=== PATIENT | female | born 1955 | race Caucasian/White ===

== ENCOUNTER 2021-01-13 13:12 | Outpatient (REF) | payer MEDICARE, SELFPAY ==
--- NOTE | ~2021-01-13 | MM_ITS ---
EXAMINATION: MM SCREENING DIGITAL BREAST TOMOSYNTHESIS, BILATERAL CLINICAL INFORMATION: Screening. Asymptomatic. Right breast cancer history, 2003. COMPARISON: Mammography: 01/11/2020, 10/21/2018, 10/19/2017 TECHNIQUE: Digital breast tomosynthesis is performed in both the craniocaudal and mediolateral oblique views along with computer-aided detection (CAD). Synthesized 2D images are generated from the tomosynthesis. Additional exaggerated right CC view is provided. FINDINGS: There are scattered areas of fibroglandular density (ACR BI-RADS breast composition Category b). There is minor stable scarring anterior upper outer right breast similar to prior studies. Neither breast shows developing density or interval mass or architectural abnormality. No abnormal calcifications. The axilla are unremarkable. MM/MM tomosynthesis screening BI IMPRESSION: No mammographic evidence of malignancy. Post therapy changes right breast. ASSESSMENT: BI-RADS 2: Benign RECOMMENDATION: Routine annual mammography screening. This patient's information was entered into a reminder system with a target due date for their next mammogram.
== END 2021-01-13 13:13 | disposition home or self-care (01) ==
LOC: HO.MAMMO 13:12
PROVIDERS: PCP Internal Medicine; Visit Provider Internal Medicine
DX: Z12.31 Encounter for screening mammogram for malignant neoplasm of breast (principal)
CPT/HCPCS: 77063; 77067

== ENCOUNTER 2022-01-19 13:14 | Outpatient (REF) | payer MEDICARE, SELFPAY ==
--- NOTE | ~2022-01-19 | MM_ITS ---
EXAMINATION: MM SCREENING DIGITAL BREAST TOMOSYNTHESIS, BILATERAL CLINICAL INFORMATION: Screening. Asymptomatic. Right breast cancer status post remote lumpectomy, 2002. COMPARISON: Mammography: 01/13/2021, 01/11/2020, 10/21/2018, 10/19/2017 TECHNIQUE: Digital breast tomosynthesis is performed in both the craniocaudal and mediolateral oblique views along with computer-aided detection (CAD). Synthesized 2D images are generated from the tomosynthesis. FINDINGS: There are scattered areas of fibroglandular density (ACR BI-RADS breast composition Category b). There are no significant masses, abnormal calcifications, or other abnormalities. There is no developing density or architectural abnormality. Minor scarring on right is stable. Left CC synthesized image shows punctate digital processing pseudo calcification artifact retroareolar area without correlate on tomography or MLO view. MM/MM tomosynthesis screening BI IMPRESSION: No mammographic evidence of malignancy. ASSESSMENT: BI-RADS 2: Benign RECOMMENDATION: Routine annual mammography screening. This patient's information was entered into a reminder system with a target due date for their next mammogram.
== END 2022-01-19 13:15 | disposition home or self-care (01) ==
LOC: HO.MAMMO 13:14
PROVIDERS: Visit Provider Internal Medicine
DX: Z12.31 Encounter for screening mammogram for malignant neoplasm of breast (principal)
CPT/HCPCS: 77063; 77067

== ENCOUNTER 2023-01-05 15:49 | Outpatient (AMB) | payer MEDICARE, SELFPAY ==
[2023-01-05 15:57] VITALS: BP 140/77; PULSE 70; BMI 18.2
--- NOTE | 2023-01-05 15:57 | MHC.OFFVIS ---
Intake Vital Signs 01/05/23 15:57 Height 5 ft 5 in Weight 109 lb 2.061 oz BMI 18.2 BP 140/77 H Pulse 70 Intake Visit Reasons: Hypothyroidism Intake Note: Patient presents today for hypothyroidism. Service Coordinator Elderly Facility Required: No Accompanied by: Self / Same As Patient Allergies erythromycin base [Erythromycin Base] Allergy (Intermediate, Verified 01/05/23 16:00) RASH/HIVES Medication List - Last Reconciled 01/05/23 by Jose Luque MD betamethasone dipropionate 0.05% 1 appl topical BID PRN calcium carb-vitamin D3-vit K2 600 mg-1,000 unit-90 mcg tabs PO cyanocobalamin (vitamin B-12) 1,000 mcg PO DAILY diazepam 5 mg PO BID PRN 30 days folic acid 0.4 mg PO DAILY levothyroxine 88 mcg orally once a day and 2 on wednesday; 90 days oxycodone 5 mg PO DAILY PRN HPI HPI Comments History of Present Illness Details 67 YO F with who is seen in consultation at the request of his PCP for Hyothyroidism. Patient was previously seen for Graves disease which evolved into hypothyroidism. She is currently on 88 mcg levothyroxine and 2 tablets on Wednesday .Denies sx of hypothyroidism or hyperthyroidism Eyes are not bothering her. [facility] Medical History (Updated 10/30/22 @ 12:11 by David Padilla MD) Adult general medical exam Anxiety History of breast cancer Hypercholesterolemia Hypothyroid Migraine Screening for diabetes mellitus Surgical History H/O breast biopsy History of colonoscopy History of tubal ligation Hx of myomectomy Family History Father Bladder cancer Mother Hypertension Brother Acute CVA (cerebrovascular accident) Hx of CABG Sister Ovarian cancer Brain aneurysm Social History Housing: House Alcohol intake: current Alcohol intake frequency: a few times a week Alcohol type: wine Patient Tobacco Use Status: Former Tobacco user Years Smoked: 23 years old e-Cigarette/Vaping Use: Never Used Second Hand Smoke Exposure: No service: No Current occupational status: retired Cognitive needs: No Hearing needs: No Vision needs: Yes Physical Exam Vital Signs: BMI result Body Mass Index 18.2 HEENT reveals absence of lid lag , stare or proptosis or eyebrow loss. Thyroid gland measure gms . No nodules or tenderness palpated. There is no cervical adenopathy palpated. Lungs CTA. Heart S1, S2 Reg R/R -M/R/G. Abdominal exam benign. Skin exam reveals absence of dryness or thyroid dermopathy or vitiligo. Nail exam reveals absence of thyroid acropachy or oncholysis. Neurologic exam reveals 2+ reflexes . Muscle Strength is 5/5 proximally. There are no tremors in upper extremities. Assessment & Plan Assessment & Plan (1) Hypothyroid: Comment: History of hyperthyroidism Dr. Rock changed to under active Code(s): E03.9 - Hypothyroidism, unspecified Qualifiers: Hypothyroidism type: acquired Qualified Code(s): E03.9 - Hypothyroidism, unspecified Plan: This 67-year-old white female with a history of autoimmune thyroid disease and hypothyroidism currently being treated with 88 mcg levothyroxine. She appears to be clinically and biochemically euthyroid. Plan is to continue the current therapy. At this point, patient returned to the care of her primary care provider and return back to endocrinology as needed Coding Level of Care Code Est Pt Level 3 (16410) Diagnoses Hypothyroid E03.9 Hypothyroidism type: acquired
== END 2023-01-05 16:28 | disposition home or self-care (01) ==
PROVIDERS: PCP Internal Medicine; Visit Provider Internal Medicine Endocrinology, Diabetes & Metabolism
DX: E03.9 Hypothyroidism, unspecified (principal)
CPT/HCPCS: 99213

== ENCOUNTER → 2023-01-05 15:49 | Outpatient (BNVA) | payer MEDICARE, SELFPAY | PROVIDERS: PCP Internal Medicine; Visit Provider Internal Medicine Endocrinology, Diabetes & Metabolism | DX: E03.9 Hypothyroidism, unspecified (principal) | CPT/HCPCS: 99212 ==

== ENCOUNTER 2023-01-22 12:42 | Outpatient (REF) | payer MEDICARE, SELFPAY ==
--- NOTE | ~2023-01-22 | MM_ITS ---
EXAMINATION: MM SCREENING DIGITAL BREAST TOMOSYNTHESIS, BILATERAL CLINICAL INFORMATION: Screening. Asymptomatic. The patient had lumpectomy for right breast cancer in 2002. COMPARISON: Mammography: This study is compared with prior exams dating back to 2017. TECHNIQUE: Digital breast tomosynthesis is performed in both the craniocaudal and mediolateral oblique views along with computer-aided detection (CAD). Synthesized 2D images are generated from the tomosynthesis. FINDINGS: There are scattered areas of fibroglandular density (ACR BI-RADS breast composition Category b). There are no significant masses, abnormal calcifications, or other abnormalities. There are mild postsurgical changes in the upper outer quadrant of the right breast. MM/MM tomosynthesis screening BI IMPRESSION: No mammographic evidence of malignancy. ASSESSMENT: BI-RADS BI-RADS 2 - Benign Findings RECOMMENDATION: Routine annual mammography screening. 1 year F/U This examination should not preclude the clinical evaluation of a suspicious palpable abnormality. This patient's information was entered into a reminder system with a target due date for their next mammogram.
== END 2023-01-22 12:43 | disposition home or self-care (01) ==
LOC: HO.MAMMO 12:42
PROVIDERS: PCP Internal Medicine; Visit Provider Internal Medicine
DX: Z12.31 Encounter for screening mammogram for malignant neoplasm of breast (principal)
CPT/HCPCS: 77063; 77067

== ENCOUNTER → 2023-01-22 13:00 | Outpatient (BNV) | payer MEDICARE, SELFPAY | PROVIDERS: PCP Internal Medicine; Visit Provider Radiology Diagnostic Radiology | DX: Z12.31 Encounter for screening mammogram for malignant neoplasm of breast (principal) | CPT/HCPCS: 77063; 77067 ==

== ENCOUNTER 2023-01-27 13:48 | Outpatient (AMB) | payer MEDICARE, SELFPAY ==
--- NOTE | 2023-01-27 13:51 | A.OFFVIS_ITS ---
Intake Vital Signs 01/27/23 13:52 Height 5 ft 5 in Weight 108 lb 0.8 oz BMI 18.0 BP 130/70 Blood Pressure Location Lt brachial Position Sitting Pulse 70 Pulse Source Pulse Oximeter Temp Source Skin Pulse Oximetry (%) 99 Oxygen Delivery Method Room Air Intake Visit Reasons: SAWV Intake Note: Patient is here for an Annual Wellness Visit. Allergies erythromycin base [Erythromycin Base] Allergy (Intermediate, Verified 01/27/23 14:06) RASH/HIVES Medication List - Last Reconciled 01/27/23 by REESE Morgan betamethasone dipropionate 0.05% 1 appl topical BID PRN calcium carb-vitamin D3-vit K2 600 mg-1,000 unit-90 mcg tabs PO cyanocobalamin (vitamin B-12) 1,000 mcg PO DAILY diazepam 5 mg PO BID PRN 30 days folic acid 0.4 mg PO DAILY levothyroxine 88 mcg orally once a day and 2 on wednesday; 90 days oxycodone 5 mg PO DAILY PRN HPI SAWV HPI Details Patient is a 67-year-old female who presents today for subsequent wellness visit. Patient of Dr. Padilla. Today we discussed patient's need for bone density screening, patient has declined. Patient did have mammogram 01/2023 with [facility], results pending. Patient has an upcoming appointment with gynecology for annual exam 03/2023. Up-to-date with immunizations. [place] of care was reviewed with the patient and she was provided with a screening schedule. Patient has declined a healthcare proxy form, and she was provided with a MOLST form. [facility] Medical History Adult general medical exam Anxiety History of breast cancer Hypercholesterolemia Hypothyroid Migraine Screening for diabetes mellitus Surgical History H/O breast biopsy History of colonoscopy History of tubal ligation Hx of myomectomy Family History Father Bladder cancer Mother Hypertension Brother Acute CVA (cerebrovascular accident) Hx of CABG Sister Ovarian cancer Brain aneurysm Social History Housing: House Alcohol intake: current Alcohol intake frequency: a few times a week Alcohol type: wine Patient Tobacco Use Status: Former Tobacco user Years Smoked: 23 years old e-Cigarette/Vaping Use: Never Used Second Hand Smoke Exposure: No service: No Current occupational status: retired Cognitive needs: No Hearing needs: No Vision needs: Yes Questionnaire Medicare Wellness Checkup What [age] What gender do you identify with?: female During the past 4 weeks, how much have you been bothered by emotional problems such as feeling anxious, depressed, irritable, sad or downhearted, and blue?: not at all During the past 4 weeks, has your physical & emotional health limited your social activities with family, friends, neighbors, or groups?: not at all During the past 4 weeks, how much bodily pain have you generally had?: moderate pain During the past 4 weeks, was someone available to help you if you needed & wanted help?: yes, as much as I wanted During the past 4 weeks, what was the hardest physical activity you could do for at least 2 minutes?: moderate Can you get to places out of walking distance without help? (For eg., can you t ravel alone on buses, taxis or drive your car?): Yes Can you go shopping for groceries or clothes without someone's help?: Yes Can you prepare your own meals?: Yes Can you do your housework without help?: Yes Because of any health problems, do you need the help of another person with your personal care needs such as eating, bathing, dressing or getting around the house?: No Can you handle your own money without help?: Yes During the past 4 weeks, how would you rate your health in general?: excellent During the past 4 weeks how have things been going for you?: very well; could hardly better Are you having difficulties driving your car?: no Do you always fasten your seat belt when you are in a car?: yes, usually During past 4 weeks, have you been bothered by the following: never: Falling or dizzy when standing up, Sexual problems?, Trouble eating well?, Teeth or denture problems?, Problems using the telephone? and Tiredness or fatigue? Have you fallen 2 or more times in the past year?: No Are you afraid of falling?: No Are you a smoker?: no During the past 4 weeks, how many drinks of wine, beer, or other alcoholic beverages did you have?: 2-5 drinks per week Do you exercise for about 20 minutes 3 or more times a week?: yes, most of the time Have you been given information to help with the following?: no: Hazards in your house that might hurt you? and no: Keeping track of your medications? How often do you have trouble taking medicines the way you have been told to take them?: I always take medicine as prescribed How confident are you that you can control & manage most of your health problems?: very confident What is your race?: White Mini Mental State Exam (MMSE) Orientation What is the (year) (season) (date) (day) (month)?: year, season, date, day and month Score Score: 5 Activity of Daily Living Bathing - sponge bath, tub bath or shower: receives no assistance (gets in/out by self, if usual bathing means Dressing - getting clothes from closets & drawers, including inner/outer garments & fasteners.: gets clothes & gets completely dressed without help Toileting - going to the 'toilet room' for urine/bowel elimination & cleaning self/arranging clothes: goes to toilet room, cleans self, arranges clothes without help Transfer: moves in & out of bed and chair without help (may use support object) Continence: controls urination/bowel movements completely by self Feeding: feeds self without help Total Score: 0 Information obtained from: patient Using telephone: independent Traveling: independent Shopping: independent Preparing meals: independent Housework: independent Taking medicine: independent Managing money: independent PHQ-9 Over the last 2 weeks, how often have you been bothered by any of the following problems? 1. Little interest or pleasure in doing things: not at all 2. Feeling down, depressed, or hopeless: not at all 3. Trouble falling or staying asleep, or sleeping too much: not at all 4. Feeling tired or having little energy: not at all 5. Poor appetite or overeating: not at all 6. Feeling bad about yourself - or that you are a failure or have let yourself or your family down: not at all 7. Trouble concentrating on things, such as reading the newspaper or watching television: not at all 8. Moving or speaking so slowly that other people could have noticed. Or the opposite - being so fidgety or restless that you have been moving around a lot more than usual: not at all 9. Thoughts that you would be better off or of hurting yourself in some way: not at all Total score: 0 Depression Screening Interpretation: Negative 31106 - PHQ-9 Billing: Yes Source: Developed by Drs. Jose Vee, Alicia Muir, Chris Hammer and colleagues, with an educational mona from [employer]. AUDIT C Alcohol Use Questionnaire (AUDIT-C) 1. How often do you have a drink containing alcohol?: Monthly or less 2. How many drinks containing alcohol do you have on a typical day when you are drinking?: 1 or 2 3. How often do you have six or more drinks on one occasion?: Never Total Score: 1 Score Reviewed/Action Taken: No Thrive Questionnaire Date Thrive assessed: 06/29/22 Review of Systems Skin/Breast Reports rash Physical Exam Vital Signs: Last Vital Signs Pulse 70 01/27/23 13:52 BP 130/70 01/27/23 13:52 Pulse Ox 99 01/27/23 13:52 Oxygen Delivery Method Room Air 01/27/23 13:52 BMI result Body Mass Index 18.0 Const General: cooperative and no acute distress Orientation/consciousness: patient oriented x3 HEENT Other: Whisper test: pass Skin Other: Right upper back with mild erythematous slightly dry area-patient reports using steroidal cream and Vaseline as needed Neuro Other: Balance: Normal Get up and walk: able to Romberg: negative Tandem gait: able to General: patient oriented x3 Assessment & Plan Assessment & Plan (1) Eczema: Code(s): L30.9 - Dermatitis, unspecified Plan: Continue steroidal cream p.r.n., continue Vaseline p.r.n. (2) Generalized anxiety disorder: Comment: decline counselling 11/2021 Code(s): F41.1 - Generalized anxiety disorder Plan: Diazepam as needed (3) Hypercholesterolemia: Code(s): E78.00 - Pure hypercholesterolemia, unspecified Plan: Continue low cholesterol diet (4) Hypothyroid: Comment: History of hyperthyroidism Dr. Rock changed to under active Code(s): E03.9 - Hypothyroidism, unspecified Qualifiers: Hypothyroidism type: acquired Qualified Code(s): E03.9 - Hypothyroidism, unspecified Plan: Continue levothyroxine (5) Migraine: Code(s): G43.909 - Migraine, unspecified, not intractable, without status migrainosus Qualifiers: Migraine type: without aura Status migrainosus presence: without status migrainosus Intractability: not intractable Qualified Code(s): G43.009 - Migraine without aura, not intractable, without status migrainosus Plan: Patient is on oxycodone 5 mg daily as needed - patient takes oxycodone as prescribed (6) Adult general medical exam: Code(s): Z00.00 - Encounter for general adult medical examination without abnormal findings Quality Reporting (2019) Depression/Bipolar (159/160/161/177) PHQ-9: Total score: 0 Coding Level of Care Code Medicare Subsequent (G0439) Diagnoses Eczema L30.9 Generalized anxiety disorder F41.1 Hypercholesterolemia E78.00 Hypothyroid E03.9 Hypothyroidism type: acquired Migraine G43.009 Migraine type: without aura Status migrainosus presence: without status migrainosus Intractability: not intractable Adult general medical exam Z00.00 CPT Codes Advance Care Planning - Time spent: 1-15 minutes, not on file ([id number]) Advance Care Planning Date of discussion: 01/27/23 Who was present: pt and manpower development advisor Time spent: 1-15 minutes, not on file Actual minutes spent: 1 Did not discuss due to Cultural/Spiritual beliefs: No
[2023-01-27 13:52] VITALS: BP 130/70; PULSE 70; O2SAT 99; BMI 18.0
== END 2023-01-27 14:22 | disposition home or self-care (01) ==
PROVIDERS: Visit Provider Nurse Practitioner Family
DX: Z00.00 Encounter for general adult medical examination without abnormal findings (principal); E03.9 Hypothyroidism, unspecified; G43.009 Migraine without aura, not intractable, without status migrainosus; L30.9 Dermatitis, unspecified; F41.1 Generalized anxiety disorder; E78.00 Pure hypercholesterolemia, unspecified
CPT/HCPCS: 1124F; G0439

== ENCOUNTER 2023-05-06 12:53 | Outpatient (AMB) | payer MEDICARE, SELFPAY ==
[2023-05-06 12:56] VITALS: BP 124/68; PULSE 70; O2SAT 98; BMI 18.3
--- NOTE | 2023-05-06 12:56 | A.OFFPC_ITS ---
Vital Signs 3 05/06/23 12:56 Height 5 ft 5 in Weight 110 lb BMI 18.3 BP 124/68 Blood Pressure Location Lt brachial Position Sitting Pulse 70 Pulse Source Pulse Oximeter Pulse Oximetry (%) 98 Oxygen Delivery Method Room Air Intake Visit Reasons: Rash on back, thyroid Allergies erythromycin base [Erythromycin Base] Allergy (Intermediate, Verified 05/06/23 12:57) RASH/HIVES Tobacco use date assessed: 06/29/22 Fall risk assessment: No Falls in past year Last assessed Fall Risk: 05/06/23 Dental Screening Dental Screen Date: 05/06/23 Did you have a dental visit in the last 12 months?: Yes Did you have a dental problem in the last 6 months where you did not have access to dental care?: No Was dental information given to patient?: Patient has dentist HPI thyroid 2 HPI0 Details 67-year-old female with a history of janie mounika taking narcotic pain medication, hypercholesterolemia generalized anxiety disorder and history of breast cancer last seen in September 2022. Patient's colonoscopy is up-to-date mammogram up-to-date bone density declined. Patient was seen by the nurse practitioner for an annual well visit in January 2023. Patient has seen the franchise manager in January also for the hypothyroidism diagnosis of autoimmune thyroid disease and hypothyroidism on 88 mcg of levothyroxine. Patient's last blood work was in September 2022 normal B12 sugar kidney function electrolytes liver function cholesterol is elevated at LDL of 143 normal thyroid vitamin-D normal blood count [facility] Medical History Adult general medical exam Anxiety History of breast cancer Hypercholesterolemia Hypothyroid Migraine Screening for diabetes mellitus Surgical History H/O breast biopsy History of colonoscopy History of tubal ligation Hx of myomectomy Family History Father Bladder cancer Mother Hypertension Brother Acute CVA (cerebrovascular accident) Hx of CABG Sister Ovarian cancer Brain aneurysm Social History Housing: House Alcohol intake: current Alcohol intake frequency: a few times a week Alcohol type: wine Patient Tobacco Use Status: Former Tobacco user Tobacco use type: Cigarette Years Smoked: 23 years old e-Cigarette/Vaping Use: Never Used Second Hand Smoke Exposure: No service: No Current occupational status: retired Cognitive needs: No Hearing needs: No Vision needs: Yes Questionnaire PHQ-9 Over the last 2 weeks, how often have you been bothered by any of the following problems? 1. Little interest or pleasure in doing things: not at all 2. Feeling down, depressed, or hopeless: not at all 3. Trouble falling or staying asleep, or sleeping too much: not at all 4. Feeling tired or having little energy: not at all 5. Poor appetite or overeating: not at all 6. Feeling bad about yourself - or that you are a failure or have let yourself or your family down: not at all 7. Trouble concentrating on things, such as reading the newspaper or watching television: not at all 8. Moving or speaking so slowly that other people could have noticed. Or the opposite - being so fidgety or restless that you have been moving around a lot more than usual: not at all 9. Thoughts that you would be better off or of hurting yourself in some way: not at all Total score: 0 Depression Screening Interpretation: Negative Depression Screening Done: Yes 38929 - PHQ-9 Billing: Yes Source: Developed by Drs. Jose Vee, Alicia Muir, Chris Hammer and colleagues, with an educational mona from [employer] [facility]. Thrive Questionnaire Date Thrive assessed: 06/29/22 AUDIT C Alcohol Use Questionnaire (AUDIT-C) 1. How often do you have a drink containing alcohol?: Monthly or less 2. How many drinks containing alcohol do you have on a typical day when you are drinking?: 1 or 2 3. How often do you have six or more drinks on one occasion?: Never Total Score: 1 Score Reviewed/Action Taken: No WILLIAN-7 AMB Questionnaire WILLIAN-7 Date WILLIAN - 7 assessed: 06/29/22 Source: Developed by Drs. Jose Vee, Chris Masters and colleagues, with an educational mona from [facility]. Physical exam (Primary Care) Vital Signs: Last Vital Signs Pulse 70 05/06/23 12:56 BP 124/68 05/06/23 12:56 Pulse Ox 98 05/06/23 12:56 Oxygen Delivery Method Room Air 05/06/23 12:56 BMI result Body Mass Index 18.3 Tobacco/Smoking Status: Tobacco use Status Tobacco use date assessed 06/29/22 05/06/23 13:02 Patient Tobacco Use Status Former Tobacco user 05/06/23 13:02 Tobacco use type Cigarette 05/06/23 13:02 e-Cigarette/Vaping Use Never Used 05/06/23 13:02 PHQ-9: PHQ-9 Score PHQ-9: Total score 0 05/06/23 13:02 Depression Screening Interpretation: Negative Thrive Assessment: Date of Thrive Assessment Date Thrive assessed 06/29/22 05/06/23 13:02 Const General: alert; No acute distress Eyes Conjunctivae: conjunctivae normal Resp Auscultation: clear to auscultation bilaterally Cardio Rate: regular rate Rhythm: regular rhythm GI Inspection: Yes normal to inspection Back/Spine/Pelvis Back/spine/pelvis image: 2 1. Patient did show a picture of the same type of rash on the left midback 2. Maculopapular rash with erythema on the right upper back triangular size 3. 4. Extrem General: Yes normal to inspection and No edema Assessment and Plan Assessment & Plan (1) History of breast cancer: Comment: [address]. [address] and Dr. ellis January 2022 Code(s): Z85.3 - Personal history of malignant neoplasm of breast Plan: Patient is up-to-date with mammogram (2) Migraine: Code(s): G43.909 - Migraine, unspecified, not intractable, without status migrainosus Qualifiers: Migraine type: without aura Status migrainosus presence: without status migrainosus Intractability: not intractable Qualified Code(s): G43.009 - Migraine without aura, not intractable, without status migrainosus Plan: Take the medication as needed. Narcotic plan (3) Hypothyroid: Comment: History of hyperthyroidism Dr. Rock changed to under active Code(s): E03.9 - Hypothyroidism, unspecified Qualifiers: Hypothyroidism type: acquired Qualified Code(s): E03.9 - Hypothyroidism, unspecified Plan: Continue with thyroid medication (4) Hypercholesterolemia: Code(s): E78.00 - Pure hypercholesterolemia, unspecified Plan: Avoid fried foods, chicken skin, eggs, butter margarine, pastries and meat. Be it pork or beef they have a lot of cholesterol LDL goal of less 30 and triglyceride of less than 150 (5) Eczema: Comment: R upper back Code(s): L30.9 - Dermatitis, unspecified Plan: called dermatology and asking for a sooner schedule Coding Level of Care Code Est Pt Level 4 (67791) Diagnoses History of breast cancer Z85.3 Migraine without aura and without status migrainosus, not intractable G43.009 Migraine type: without aura Status migrainosus presence: without status migrainosus Intractability: not intractable Acquired hypothyroidism E03.9 Hypothyroidism type: acquired Hypercholesterolemia E78.00 Eczema L30.9
== END 2023-05-06 13:33 | disposition home or self-care (01) ==
PROVIDERS: PCP Internal Medicine; Visit Provider Internal Medicine
DX: Z85.3 Personal history of malignant neoplasm of breast (principal); G43.009 Migraine without aura, not intractable, without status migrainosus; E03.9 Hypothyroidism, unspecified; E78.00 Pure hypercholesterolemia, unspecified; L30.9 Dermatitis, unspecified
CPT/HCPCS: 99214

== ENCOUNTER 2023-08-17 14:05 | Outpatient (AMB) | payer MEDICARE, SELFPAY ==
--- NOTE | 2023-08-17 14:05 | MHC.PC.OV ---
Intake Visit Reasons: migraine/[phone] Allergies erythromycin base [Erythromycin Base] Allergy (Intermediate, Verified 08/17/23 14:05) RASH/HIVES Medication List - Last Reconciled 08/17/23 by David Padilla MD betamethasone dipropionate 0.05% 1 appl topical BID PRN calcium carb-vitamin D3-vit K2 600 mg-1,000 unit-90 mcg tabs PO cyanocobalamin (vitamin B-12) 1,000 mcg PO DAILY diazepam 5 mg PO BID PRN 30 days folic acid 0.4 mg PO DAILY levothyroxine 88 mcg orally once a day and 2 on wednesday; 90 days oxycodone 5 mg PO DAILY PRN valacyclovir 1,000 mg PO Q8H 7 days Tobacco use date assessed: 08/17/23 Fall risk assessment: No Falls in past year Last assessed Fall Risk: 08/17/23 Dental Screening Dental Screen Date: 08/17/23 Did you have a dental visit in the last 12 months?: Yes Did you have a dental problem in the last 6 months where you did not have access to dental care?: No Was dental information given to patient?: Patient has dentist HPI migraine/[phone] HPI Details 67-year-old female with a history of breast cancer hypothyroidism hypercholesterolemia migraine last seen in April 2023. Patient's colonoscopy is up-to-date mammogram is up-to-date bone density declined. Noted last blood work was done in September 2022 noted to have an elevated cholesterol PFSH Medical History Adult general medical exam Anxiety History of breast cancer Hypercholesterolemia Hypothyroid Migraine Screening for diabetes mellitus Surgical History H/O breast biopsy History of colonoscopy History of tubal ligation Hx of myomectomy Family History Father Bladder cancer Mother Hypertension Brother Acute CVA (cerebrovascular accident) Hx of CABG Sister Ovarian cancer Brain aneurysm Social History Housing: House Alcohol intake: current Alcohol intake frequency: a few times a week Alcohol type: wine Patient Tobacco Use Status: Former Tobacco user Tobacco use type: Cigarette Years Smoked: 23 years old e-Cigarette/Vaping Use: Never Used Second Hand Smoke Exposure: No service: No Current occupational status: retired Cognitive needs: No Hearing needs: No Vision needs: Yes Questionnaire PHQ-9 Over the last 2 weeks, how often have you been bothered by any of the following problems? 1. Little interest or pleasure in doing things: not at all 2. Feeling down, depressed, or hopeless: not at all 3. Trouble falling or staying asleep, or sleeping too much: not at all 4. Feeling tired or having little energy: not at all 5. Poor appetite or overeating: not at all 6. Feeling bad about yourself - or that you are a failure or have let yourself or your family down: not at all 7. Trouble concentrating on things, such as reading the newspaper or watching television: not at all 8. Moving or speaking so slowly that other people could have noticed. Or the opposite - being so fidgety or restless that you have been moving around a lot more than usual: not at all 9. Thoughts that you would be better off or of hurting yourself in some way: not at all Total score: 0 Depression Screening Interpretation: Negative Depression Screening Done: Yes 77345 - PHQ-9 Billing: Yes Source: Developed by Drs. Jose Vee, Alicia Muir, Chris Hammer and colleagues, with an educational mona from [employer]. Thrive Questionnaire Date Thrive assessed: 08/17/23 I am a: Patient What is your living situation today?: I have a steady place to live Within the past 12 months, did the food you bought not last and you didn't have the money to get more?: Never true Within the past 12 months, did you worry whether your food would run out before you got money to buy more?: Never true Do you have trouble paying for medicines?: No Do you have trouble getting transportation to medical appointments?: No Do you have trouble paying your heating and electricity bill?: No Do you have trouble taking care of your child, family member or friend?: No Do you have trouble with day-to-day activities such as bathing, preparing meals, shopping, managing finances, etc.?: No Are you currently unemployed and looking for a job?: No Are you interested in more education?: No Currently or been in a relationship where the following occur: no concerns reported THRIVE Score: 0 AUDIT C Alcohol Use Questionnaire (AUDIT-C) 1. How often do you have a drink containing alcohol?: Monthly or less 2. How many drinks containing alcohol do you have on a typical day when you are drinking?: 1 or 2 3. How often do you have six or more drinks on one occasion?: Never Total Score: 1 Score Reviewed/Action Taken: No WILLIAN-7 AMB Questionnaire WILLIAN-7 Date WILLIAN - 7 assessed: 08/17/23 Feeling nervous, anxious, or on edge: 0 = Not at all Not being able to stop or control worryin = Not at all Worrying too much about different things: 0 = Not at all Trouble relaxin = Not at all Being so restless that it is hard to sit still: 0 = Not at all Becoming easily annoyed or irritable: 0 = Not at all Feeling afraid as if something awful might happen: 0 = Not at all Total WILLIAN-7 score (0-4 normal; 5-9 mild; 10-14 moderate; 15-21 severe): 0 Source: Developed by Drs. Jose Vee, Alicia Muir, Chris Hammer and colleagues, with an educational mona from [employer]. Physical exam (Primary Care) Tobacco/Smoking Status: Tobacco use Status Tobacco use date assessed 08/17/23 08/17/23 14:07 Patient Tobacco Use Status Former Tobacco user 08/17/23 14:07 Tobacco use type Cigarette 08/17/23 14:07 e-Cigarette/Vaping Use Never Used 08/17/23 14:07 PHQ-9: PHQ-9 Score PHQ-9: Total score 0 08/17/23 14:07 Depression Screening Interpretation: Negative Thrive Assessment: Date of Thrive Assessment Date Thrive assessed 08/17/23 08/17/23 14:07 Currently or been in a relationship where the following occur: no concerns reported Telehealth Telehealth Location of provider rendering services: practice address Location of patient: address on file Patient Identification confirmed using: Name, : Yes Telehealth method: voice only ([phone], [employer]) Patient verbally consented to treatment: Yes Patient verbally consented to billing insurance company: Yes Patient informed of any privacy concerns related to visit: Yes Minutes spent on Phone/Video with Pt.: 25 Assessment and Plan Assessment & Plan (1) Hypothyroid: Comment: History of hyperthyroidism Dr. Rock changed to under active Code(s): E03.9 - Hypothyroidism, unspecified Qualifiers: Hypothyroidism type: acquired Qualified Code(s): E03.9 - Hypothyroidism, unspecified Plan: Continue with thyroid medication but will need blood work (2) Hypercholesterolemia: Code(s): E78.00 - Pure hypercholesterolemia, unspecified Plan: Avoid fried foods, chicken skin, eggs, butter margarine, pastries and meat. Be it pork or beef they have a lot of cholesterol LDL goal of less than 130 and triglyceride of less than 150 (3) History of breast cancer: Comment: [address]. [address] Dr. ellis January 2022 Code(s): Z85.3 - Personal history of malignant neoplasm of breast Plan: January 2023 up-to-date with mammogram (4) Generalized anxiety disorder: Comment: decline counselling 11/2021 Code(s): F41.1 - Generalized anxiety disorder Plan: Continue with diazepam as needed (5) Migraine: Code(s): G43.909 - Migraine, unspecified, not intractable, without status migrainosus Qualifiers: Migraine type: without aura Status migrainosus presence: without status migrainosus Intractability: not intractable Qualified Code(s): G43.009 - Migraine without aura, not intractable, without status migrainosus Plan: Patient has been placed on oxycodone to take as needed. Discussed with the patient that this may not be the best treatment for migraines and she is aware of the side effect profile of oxycodone. Patient also takes the medication as needed states about 4-5 days in a month she gets the migraine and uses the medication p.r.n.. Orders: Orders Comprehensive Met. Panel Today E78.00 - Pure hypercholesterolemia, unspecified Free T4 (Free Thyroxine) Today E78.00 - Pure hypercholesterolemia, unspecified Vitamin B12 and Folate Today E78.00 - Pure hypercholesterolemia, unspecified Complete Blood Count Auto Diff Today E78.00 - Pure hypercholesterolemia, unspecified Lipid Panel Today E78.00 - Pure hypercholesterolemia, unspecified Thyroid Stimulating Hormone Today E78.00 - Pure hypercholesterolemia, unspecified Coding Level of Care Code Tele Est Pt Level 4 (22210) Diagnoses Acquired hypothyroidism E03.9 Hypothyroidism type: acquired Hypercholesterolemia E78.00 History of breast cancer Z85.3 Generalized anxiety disorder F41.1 Migraine without aura and without status migrainosus, not intractable G43.009 Migraine type: without aura Status migrainosus presence: without status migrainosus Intractability: not intractable
== END 2023-08-17 15:04 | disposition home or self-care (01) ==
LOC: HO.HMGH 14:05
PROVIDERS: PCP Internal Medicine; Visit Provider Internal Medicine
DX: G43.009 Migraine without aura, not intractable, without status migrainosus (principal); E03.9 Hypothyroidism, unspecified; E78.00 Pure hypercholesterolemia, unspecified; F41.1 Generalized anxiety disorder; Z85.3 Personal history of malignant neoplasm of breast
CPT/HCPCS: 99443

== ENCOUNTER 2023-12-08 12:59 | Outpatient (AMB) | payer MEDICARE, SELFPAY ==
--- NOTE | 2023-12-08 13:00 | A.OFFPC_ITS ---
Vital Signs 12/08/23 13:00 Height 5 ft 5 in Blood Pressure Location Lt brachial Position Sitting Pulse Source Pulse Oximeter Oxygen Delivery Method Room Air Intake Visit Reasons: Migraine, hypothyroidism/[phone] Cell Phone Allergies erythromycin base [Erythromycin Base] Allergy (Intermediate, Verified 12/08/23 13:01) RASH/HIVES Tobacco use date assessed: 08/17/23 Fall risk assessment: No Falls in past year Last assessed Fall Risk: 12/08/23 Dental Screening Dental Screen Date: 08/17/23 HPI Migraine, hypothyroidism/[phone] Cell Phone HPI Details 67-year-old female with a history of patricio ast cancer, hypothyroidism hypercholesterolemia generalized anxiety disorder and migraine. Patient is here for follow-up last seen in 08/25/2023. Patient's colonoscopy is up-to-date mammogram is up-to-date 01/24/2023 bone density was declined. Review of the notes received blood work done in 09/25/2023. Showing no anemia with normal platelet and WBC blood sugar 100 normal kidney function normal electrolytes normal liver function total cholesterol of 222 bad cholesterol is 143 good cholesterol 66. Thyroid test is normal [facility] Medical History Adult general medical exam Anxiety History of breast cancer Hypercholesterolemia Hypothyroid Migraine Screening for diabetes mellitus Surgical History H/O breast biopsy History of colonoscopy History of tubal ligation Hx of myomectomy Family History Father Bladder cancer Mother Hypertension Brother Acute CVA (cerebrovascular accident) Hx of CABG Sister Ovarian cancer Brain aneurysm Social History Housing: House Alcohol intake: current Alcohol intake frequency: a few times a week Alcohol type: wine Patient Tobacco Use Status: Former Tobacco user Tobacco use type: Cigarette Years Smoked: 23 years old e-Cigarette/Vaping Use: Never Used Second Hand Smoke Exposure: No service: No Current occupational status: retired Cognitive needs: No Hearing needs: No Vision needs: Yes Questionnaire PHQ-9 Over the last 2 weeks, how often have you been bothered by any of the following problems? 1. Little interest or pleasure in doing things: not at all 2. Feeling down, depressed, or hopeless: not at all 3. Trouble falling or staying asleep, or sleeping too much: not at all 4. Feeling tired or having little energy: not at all 5. Poor appetite or overeating: not at all 6. Feeling bad about yourself - or that you are a failure or have let yourself or your family down: not at all 7. Trouble concentrating on things, such as reading the newspaper or watching television: not at all 8. Moving or speaking so slowly that other people could have noticed. Or the opposite - being so fidgety or restless that you have been moving around a lot more than usual: not at all 9. Thoughts that you would be better off or of hurting yourself in some way: not at all Total score: 0 Depression Screening Interpretation: Negative Depression Screening Done: Yes 00360 - PHQ-9 Billing: Yes Source: Developed by Drs. Jose Vee, Alicia Muir, Chris Hammer and colleagues, with an educational mona from [employer]. Thrive Questionnaire Date Thrive assessed: 08/17/23 AUDIT C Alcohol Use Questionnaire (AUDIT-C) 1. How often do you have a drink containing alcohol?: Monthly or less 2. How many drinks containing alcohol do you have on a typical day when you are drinking?: 1 or 2 3. How often do you have six or more drinks on one occasion?: Never Total Score: 1 Score Reviewed/Action Taken: No WILLIAN-7 AMB Questionnaire WILLIAN-7 Date WILLIAN - 7 assessed: 08/17/23 Source: Developed by Drs. Jose Vee, Alicia Muir, Chris Hammer and colleagues, with an educational mona from [employer]. Physical exam (Primary Care) Vital Signs: Oxygen Delivery Method Room Air 12/08/23 13:00 Tobacco/Smoking Status: Tobacco use Status Tobacco use date assessed 08/17/23 12/08/23 13:02 Patient Tobacco Use Status Former Tobacco user 12/08/23 13:02 Tobacco use type Cigarette 12/08/23 13:02 e-Cigarette/Vaping Use Never Used 12/08/23 13:02 PHQ-9: PHQ-9 Score PHQ-9: Total score 0 12/08/23 13:02 Depression Screening Interpretation: Negative Thrive Assessment: Date of Thrive Assessment Date Thrive assessed 08/17/23 12/08/23 13:02 Telehealth Telehealth Location of provider rendering services: practice address Location of patient: address on file Patient Identification confirmed using: Name, : Yes Telehealth method: voice only ([phone], [employer]) Patient verbally consented to treatment: Yes Patient verbally consented to billing insurance company: Yes Patient informed of any privacy concerns related to visit: Yes Minutes spent on Phone/Video with Pt.: 25 Assessment and Plan Assessment & Plan (1) Hypothyroid: Comment: History of hyperthyroidism Dr. Rock changed to under active Code(s): E03.9 - Hypothyroidism, unspecified Qualifiers: Hypothyroidism type: acquired Qualified Code(s): E03.9 - Hypothyroi dism, unspecified Plan: Continue with the thyroid medication blood work 09/25/2023 within normal limits (2) Hypercholesterolemia: Code(s): E78.00 - Pure hypercholesterolemia, unspecified Plan: Avoid fried foods, chicken skin, eggs, butter margarine, pastries and meat. Be it pork or beef they have a lot of cholesterol LDL goal of less than 130 is recommended. (3) Migraine: Code(s): G43.909 - Migraine, unspecified, not intractable, without status migrainosus Qualifiers: Migraine type: without aura Status migrainosus presence: without status migrainosus Intractability: not intractable Qualified Code(s): G43.009 - Migraine without aura, not intractable, without status migrainosus Plan: Patient takes oxycodone for migraines and discussed against this if she does say she takes it rarely. (4) Generalized anxiety disorder: Comment: decline counselling 11/2021 Code(s): F41.1 - Generalized anxiety disorder Plan: Continue with present medication (5) History of breast cancer: Comment: [address] Dr. ellis January 2022 Code(s): Z85.3 - Personal history of malignant neoplasm of breast Plan: Continue with regularly updating mammogram. Coding Level of Care Code Tele Est Pt Level 4 (09739) Diagnoses Acquired hypothyroidism E03.9 Hypothyroidism type: acquired Hypercholesterolemia E78.00 Migraine without aura and without status migrainosus, not intractable G43.009 Migraine type: without aura Status migrainosus presence: without status migrainosus Intractability: not intractable Generalized anxiety disorder F41.1 History of breast cancer Z85.3
== END 2023-12-08 16:29 | disposition home or self-care (01) ==
LOC: HO.HMGH 12:59
PROVIDERS: PCP Internal Medicine; Visit Provider Internal Medicine
DX: E03.9 Hypothyroidism, unspecified (principal); E78.00 Pure hypercholesterolemia, unspecified; G43.009 Migraine without aura, not intractable, without status migrainosus; F41.1 Generalized anxiety disorder; Z85.3 Personal history of malignant neoplasm of breast
CPT/HCPCS: 99442

== ENCOUNTER 2024-01-24 13:49 | Outpatient (REF) | payer MEDICARE, SELFPAY ==
--- NOTE | ~2024-01-24 | MM_ITS ---
EXAMINATION: MM SCREENING DIGITAL BREAST TOMOSYNTHESIS, BILATERAL CLINICAL INFORMATION: Screening. Asymptomatic. The patient has history of prior right breast surgery for cancer diagnosed in 2003. COMPARISON: Mammography: This study is compared with prior exams dating back to 2019. TECHNIQUE: Digital breast tomosynthesis is performed in both the craniocaudal and mediolateral oblique views along with computer-aided detection (CAD). Synthesized 2D images are generated from the tomosynthesis. FINDINGS: There are scattered areas of fibroglandular density (ACR BI-RADS breast composition Category b). There are no significant masses, abnormal calcifications, or other abnormalities. There are mild postsurgical changes in the upper-outer quadrant of the right breast. MM/MM tomosynthesis screening BI IMPRESSION: No mammographic evidence of malignancy. ASSESSMENT: BI-RADS BI-RADS 2 - Benign Findings RECOMMENDATION: Routine annual mammography screening. 1 year F/U This examination should not preclude the clinical evaluation of a suspicious palpable abnormality. This patient's information was entered into a reminder system with a target due date for their next mammogram. Electronically signed by: Emily Miranda MD 02/21/2024 10:11 AM EDT
== END 2024-01-24 13:50 | disposition home or self-care (01) ==
LOC: HO.MAMMO 13:49
PROVIDERS: PCP Internal Medicine; Visit Provider Internal Medicine
DX: Z12.31 Encounter for screening mammogram for malignant neoplasm of breast (principal)
CPT/HCPCS: 77063; 77067

== ENCOUNTER → 2024-01-24 14:00 | Outpatient (BNV) | payer MEDICARE, SELFPAY | PROVIDERS: PCP Internal Medicine; Visit Provider Radiology Diagnostic Radiology | DX: Z12.31 Encounter for screening mammogram for malignant neoplasm of breast (principal) | CPT/HCPCS: 77063; 77067 ==

== ENCOUNTER 2024-01-25 13:41 | Outpatient (AMB) | payer MEDICARE, SELFPAY ==
--- NOTE | 2024-01-25 13:44 | A.OFFVIS_ITS ---
Vital Signs 01/25/24 13:46 Height 5 ft 5 in Weight 107 lb BMI 17.8 BP 132/82 Intake Visit Reasons: New patient Annual Cra Officer: Cra Officer Present (Ilene) Allergies erythromycin base [Erythromycin Base] Allergy (Intermediate, Verified 01/25/24 13:46) RASH/HIVES HPI Comments Details: She is a postmenopausal woman presenting for her new patient annual hot saw helper examination. She is doing well with no concerns. Attempting to eat a healthy diet with calcium and vitamin D and stays active with exercise. Currently not sexually active, due to husbands medical issues. Denies any vaginal dryness or irritation. STI testing offered; she declines. Had bone density with school age program associate was advised not to utilize medications at the time due to side effects, risks. Last pap smear; ASCUS, negative HPV 2017. Last mammogram; 01/25/2024 pending read. History of right breast cancer 2021. Tamoxifen x5yrs. Colonoscopy is UTD. Denies any family history of breast or colon cancer. Family history of ovarian cancer sister. [facility] Medical History Adult general medical exam Screening for diabetes mellitus Hypercholesterolemia Anxiety History of breast cancer Hypothyroid Migraine Surgical History History of colonoscopy Hx of myomectomy H/O breast biopsy History of tubal ligation Family History Father Bladder cancer Mother Hypertension Brother Acute CVA (cerebrovascular accident) Hx of CABG Sister Ovarian cancer Brain aneurysm Social History Housing: House Alcohol intake: current Alcohol intake frequency: a few times a week Alcohol type: wine Patient Tobacco Use Status: Former Tobacco user Tobacco use type: Cigarette Years Smoked: 23 years old e-Cigarette/Vaping Use: Never Used Second Hand Smoke Exposure: No service: No Current occupational status: retired Cognitive needs: No Hearing needs: No Vision needs: Yes Female Reproductive History Menstrual Total pregnancies: 2 Full term: 2 Number of Living Children: 2 Date of last pap smear: 07/01/17 ([place]) History of abnormal pap smear: Yes (07/10 ascus) Date of Mammogram: 01/24/24 History of abnormal mammogram: Yes (hx breast ca) Review of Systems Const All systems reviewed & are unremarkable except as noted in HPI and below Reports as per HPI Eyes Reports no additional complaints ENT Reports no additional complaints Card Reports no additional complaints Resp Reports no additional complaints GI Reports as per HPI and Reports no additional complaints Reports as per HPI Musc Reports no additional complaints Skin/Breast Reports as per HPI Neuro Reports no additional complaints Psych Reports no additional complaints Endo Reports no additional complaints [place]/Lymph Reports no additional complaints Aller/Immun Reports no additional complaints Physical Exam Vital Signs: BMI result Body Mass Index 17.8 Const General: cooperative, healthy appearing, no acute distress, well developed and alert Orientation/consciousness: patient oriented x3 HEENT Head: Yes normal to inspection Eyes General: appearance normal, both eyes and all related structures Neck Neck: Yes normal visual inspection Thyroid: Thyroid normal Chest Chest palpation & inspection: normal inspection of the chest and other (no puckering, dimpling, peau de orange, retraction, discharge, masses) Breast/axilla inspection: normal inspection of the breasts Breast/axilla palpation: normal palpation of the breasts Resp Effort & Inspection: normal respiratory effort GI Inspection: Yes normal to inspection Palpation (GI): Soft to palpation Rectal Exam - Female: deferred General: Yes bladder normal to palpation External Female Exam: normal external appearance and normal appearance of the urethra Speculum Exam - Vagina: normal appearance of the vagina, normal palpation, normal vaginal discharge and vagina atrophic Speculum Exam - Cervix: normal appearance of the cervix, normal palpation and Other cervical findings present (Bled slightly with Pap) Bimanual exam- vagina & uterus: normal bimanual exam, normal palpation, uterine size normal, bladder normal to palpation, normal palpation and non-tender Bimanual Exam- Adnexa, other: no masses Skin General skin exam: no rashes or lesions noted Rashes: no rashes Neuro General: patient oriented x3 Cognition (Neuro): normal cognition Extrem General: Yes normal to inspection Psych Attitude: cooperative Thought process: Normal thought process present Assessment & Plan Assessment & Plan (1) Encounter for well woman exam with routine gynecological exam: Code(s): Z01.419 - Encounter for gynecological examination (general) (routine) without abnormal findings Category: Medical (2) Atypical squamous cells of undetermined significance (ASC-US) on cervical Pap smear: Code(s): R87.610 - Atypical squamous cells of undetermined significance on cytologic smear of cervix (ASC-US) Plan Discussed: Current recommendations for pap smears per ASCCP guidelines. Breast awareness, periodic self breast exams and yearly mammogram. Maintain a healthy lifestyle, well balanced diet including Calcium 1,200mg and Vitamin D 600 IU daily, and routine exercise. Contact the office with any postmenopausal bleeding. Patient verbalizes understanding and agrees to the plan of care. She was given opportunity to ask questions and all questions were answered to the best of my ability. RTO in 2 year for annual hot saw helper exam. This note is constructed using voice recognition software. While every effort has been made to ensure accuracy, foot and ankle surgeon errors may have been included. Coding Level of Care Code New Pt Prev Care >65yr (78708) Diagnoses Encounter for well woman exam with routine gynecological exam Z01.419 Atypical squamous cells of undetermined significance (ASC-US) on cervical Pap smear R87.610
[2024-01-25 13:46] VITALS: BP 132/82; BMI 17.8
== END 2024-01-25 14:55 | disposition home or self-care (01) ==
PROVIDERS: PCP Internal Medicine; Visit Provider Advanced Practice Midwife
DX: Z01.419 Encounter for gynecological examination (general) (routine) without abnormal findings (principal); R87.610 Atypical squamous cells of undetermined significance on cytologic smear of cervix (ASC-US)
CPT/HCPCS: G0101

== ENCOUNTER 2024-01-25 13:41 | Outpatient (REF) | payer MEDICARE, SELFPAY ==
[2024-01-28 10:03] LABS: HPV mRNA E6/E7 Not Detected (Not Detected)
== END 2024-01-25 13:42 | disposition home or self-care (01) ==
LOC: HO.LNP 13:41
PROVIDERS: PCP Internal Medicine; Visit Provider Advanced Practice Midwife
DX: Z01.419 Encounter for gynecological examination (general) (routine) without abnormal findings (principal); Z11.51 Encounter for screening for human papillomavirus (HPV)
CPT/HCPCS: 87624; 88175; G0101

== ENCOUNTER 2024-03-30 14:21 | Outpatient (AMB) | payer MEDICARE, SELFPAY ==
[2024-03-30 14:23] VITALS: BP 136/84; PULSE 75; O2SAT 96; BMI 17.6
--- NOTE | 2024-03-30 14:23 | MHC.PC.OV ---
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 Patient is up to date with colonoscopy 2019 mammogram January, bone density has declined Pap smear January. 09/25/2023 last blood work showing normal blood count with mildly elevated blood sugar normal kidney function normal electrolytes normal liver function elevated bad cholesterol LDL of 143 normal TSH PFSH Medical History Adult general medical exam Screening for diabetes mellitus Hypercholesterolemia Anxiety History of breast cancer Hypothyroid Migraine Surgical History History of colonoscopy Hx of myomectomy H/O breast biopsy History of tubal ligation Family History Father Bladder cancer Mother Hypertension Brother Acute CVA (cerebrovascular accident) Hx of CABG Sister Ovarian cancer Brain aneurysm Social History Housing: House Alcohol intake: current Alcohol intake frequency: a few times a week Alcohol type: wine Patient Tobacco Use Status: Former Tobacco user Tobacco use type: Cigarette Years Smoked: 23 years old e-Cigarette/Vaping Use: Never Used Second Hand Smoke Exposure: No service: No Current occupational status: retired Cognitive needs: No Hearing needs: No Vision needs: Yes Questionnaire PHQ-9 Over the last 2 weeks, how often have you been bothered by any of the following problems? 1. Little interest or pleasure in doing things: not at all 2. Feeling down, depressed, or hopeless: not at all 3. Trouble falling or staying asleep, or sleeping too much: not at all 4. Feeling tired or having little energy: not at all 5. Poor appetite or overeating: not at all 6. Feeling bad about yourself - or that you are a failure or have let yourself or your family down: not at all 7. Trouble concentrating on things, such as reading the newspaper or watching television: not at all 8. Moving or speaking so slowly that other people could have noticed. Or the opposite - being so fidgety or restless that you have been moving around a lot more than usual: not at all 9. Thoughts that you would be better off or of hurting yourself in some way: not at all Total score: 0 Depression Screening Interpretation: Negative Depression Screening Done: Yes 52549 - PHQ-9 Billing: Yes Source: Developed by Drs. Jose Vee, Alicia Muir, Chris Hammer and colleagues, with an educational mona from [employer]. Thrive Questionnaire Date Thrive assessed: 08/17/23 AUDIT C Alcohol Use Questionnaire (AUDIT-C) 2. How many drinks containing alcohol do you have on a typical day when you are drinking?: 1 or 2 3. How often do you have six or more drinks on one occasion?: Never Total Score: 0 WILLIAN-7 AMB Questionnaire WILLIAN-7 Date WILLIAN - 7 assessed: 08/17/23 Source: Developed by Drs. Jose Vee, Alicia Muir, Chris Hammer and colleagues, with an educational mona from [employer]. Physical exam (Primary Care) Vital Signs: Last Vital Signs Pulse 75 03/30/24 14:23 BP 136/84 03/30/24 14:23 Pulse Ox 96 03/30/24 14:23 Oxygen Delivery Method Room Air 03/30/24 14:23 BMI result Body Mass Index 17.6 Tobacco/Smoking Status: Tobacco use Status Tobacco use date assessed 08/17/23 03/30/24 14:27 Patient Tobacco Use Status Former Tobacco user 03/30/24 14:27 Tobacco use type Cigarette 03/30/24 14:27 e-Cigarette/Vaping Use Never Used 03/30/24 14:27 PHQ-9: PHQ-9 Score PHQ-9: Total score 0 03/30/24 14:27 Depression Screening Interpretation: Negative Thrive Assessment: Date of Thrive Assessment Date Thrive assessed 08/17/23 03/30/24 14:27 Const General: alert; No acute distress Eyes Conjunctivae: conjunctivae normal Resp Auscultation: clear to auscultation bilaterally Cardio Rate: regular rate Rhythm: regular rhythm GI Inspection: Yes normal to inspection Extrem General: Yes normal to inspection and No edema Coding Level of Care Code Est Pt Level 4 (46655) Diagnoses History of breast cancer Z85.3 Acquired hypothyroidism E03.9 Hypothyroidism type: acquired Hypercholesterolemia E78.00 Migraine without aura and without status migrainosus, not intractable G43.009 Migraine type: without aura Status migrainosus presence: without status migrainosus Intractability: not intractable Generalized anxiety disorder F41.1 Impaired glucose tolerance R73.02 Assessment & Plan Assessment & Plan (1) History of breast cancer: Comment: [address]. [address] and Dr. ellis January 2022 Code(s): Z85.3 - Personal history of malignant neoplasm of breast Category: Medical Plan: Patient is up-to-date with mammogram (2) Hypothyroid: Comment: History of hyperthyroidism Dr. Rock changed to under active Code(s): E03.9 - Hypothyroidism, unspecified Category: Medical Qualifiers: Hypothyroidism type: acquired Qualified Code(s): E03.9 - Hypothyroidism, unspecified Plan: Continue with thyroid medication. (3) Hypercholesterolemia: Code(s): E78.00 - Pure hypercholesterolemia, unspecified Category: Medical Plan: Avoid fried foods, chicken skin, eggs, butter margarine, pastries and meat. Be it pork or beef they have a lot of cholesterol LDL goal of less than 130 and triglyceride of less than 150. (4) Migraine: Code(s): G43.909 - Migraine, unspecified, not intractable, without status migrainosus Category: Medical Qualifiers: Migraine type: without aura Status migrainosus presence: without status migrainosus Intractability: not intractable Qualified Code(s): G43.009 - Migraine without aura, not intractable, without status migrainosus Plan: Patient is advised to eat healthy, keep well hydrated, keep active and have adequate sleep. (5) Generalized anxiety disorder: Comment: decline counselling 11/2021 Code(s): F41.1 - Generalized anxiety disorder Category: Medical Plan: Continue with present medication as needed (6) Impaired glucose tolerance: Code(s): R73.02 - Impaired glucose tolerance (oral) Category: Medical Plan: Decrease the amount of carbohydrate intake, pasta, bread, rice and potatoes are all sugar and that is aside from all the sweet stuff, remember that fruits are good but they are Sweet also.
== END 2024-03-30 14:53 | disposition home or self-care (01) ==
PROVIDERS: PCP Internal Medicine; Visit Provider Internal Medicine
DX: Z85.3 Personal history of malignant neoplasm of breast (principal); E03.9 Hypothyroidism, unspecified; E78.00 Pure hypercholesterolemia, unspecified; G43.009 Migraine without aura, not intractable, without status migrainosus; F41.1 Generalized anxiety disorder; R73.02 Impaired glucose tolerance (oral)

== ENCOUNTER → 2024-03-30 14:21 | Outpatient (BNVA) | payer MEDICARE, SELFPAY | PROVIDERS: PCP Internal Medicine; Visit Provider Internal Medicine | DX: E03.9 Hypothyroidism, unspecified (principal); E78.00 Pure hypercholesterolemia, unspecified; G43.009 Migraine without aura, not intractable, without status migrainosus; F41.1 Generalized anxiety disorder; R73.02 Impaired glucose tolerance (oral); Z85.3 Personal history of malignant neoplasm of breast | CPT/HCPCS: 99212 ==

== ENCOUNTER 2024-07-13 11:11 | Outpatient (AMB) | payer MEDICARE, SELFPAY ==
--- NOTE | 2024-07-13 11:12 | A.OFFPC_ITS ---
Intake Visit Reasons: GERD, migraine/ [phone] Allergies erythromycin base [Erythromycin Base] Allergy (Intermediate, Verified 07/13/24 11:12) RASH/HIVES Tobacco use date assessed: 07/13/24 Fall risk assessment: No Falls in past year Last assessed Fall Risk: 07/13/24 Dental Screening Dental Screen Date: 07/13/24 Did you have a dental visit in the last 12 months?: Yes Did you have a dental problem in the last 6 months where you did not have access to dental care?: No Was dental information given to patient?: Patient has dentist HPI GERD, migraine/ [phone] HPI Details The patient is a 68-year-old female presenting for follow-up management of her chronic conditions including migraine headaches, hypothyroidism, and hypercholesterolemia. She has a past medical history significant for breast cancer diagnosed in 2002. She reports taking noxicodone as needed for pain associated with migraines but was advised this might not be optimal for management and is aware she may need alternative treatment. The last thyroid function test was conducted in September, and a new blood test is planned. Her hypercholesterolemia was last monitored in September 2023, and she is currently taking azepam as needed for anxiety. The patient has a history noted of GERD but does not recall symptoms or reporting this and queries its inclusion in her medical records. Her preventive healthcare is up-to-date, with a mammogram completion in January 2024 and a colonoscopy in September 2019. Bone density was last measured in 2019, indicating a decline. - General: Reports good wellbeing and ge tting new kittens. - Respiratory: Denies current respirator y symptoms but aware of COVID-19, RSV prevalence. - Endocrine: Denies recall of any curren t GERD symptoms. - Psychiatric: Reports general anxiety m anagement with azepam. [facility] Medical History Adult general medical exam Screening for diabetes mellitus Hypercholesterolemia Anxiety History of breast cancer Hypothyroid Migraine Surgical History History of colonoscopy Hx of myomectomy H/O breast biopsy History of tubal ligation Family History Father Bladder cancer Mother Hypertension Brother Acute CVA (cerebrovascular accident) Hx of CABG Sister Ovarian cancer Brain aneurysm Social History Housing: House Alcohol intake: current Alcohol intake frequency: a few times a week Alcohol type: wine Patient Tobacco Use Status: Former Tobacco user Tobacco use type: Cigarette Years Smoked: 23 years old e-Cigarette/Vaping Use: Never Used Second Hand Smoke Exposure: No service: No Current occupational status: retired Cognitive needs: No Hearing needs: No Vision needs: Yes Questionnaire PHQ-9 Over the last 2 weeks, how often have you been bothered by any of the following problems? 1. Little interest or pleasure in doing things: not at all 2. Feeling down, depressed, or hopeless: not at all 3. Trouble falling or staying asleep, or sleeping too much: not at all 4. Feeling tired or having little energy: not at all 5. Poor appetite or overeating: not at all 6. Feeling bad about yourself - or that you are a failure or have let yourself or your family down: not at all 7. Trouble concentrating on things, such as reading the newspaper or watching television: not at all 8. Moving or speaking so slowly that other people could have noticed. Or the opposite - being so fidgety or restless that you have been moving around a lot more than usual: not at all 9. Thoughts that you would be better off or of hurting yourself in some way: not at all Total score: 0 Depression Screening Interpretation: Negative Depression Screening Done: Yes 61701 - PHQ-9 Billing: Yes Source: Developed by Drs. Jose Vee, Alicia Muir, Chris Hammer and colleagues, with an educational mona from [employer]. Thrive Questionnaire Date Thrive assessed: 07/13/24 I am a: Patient What is your living situation today?: I have a steady place to live Within the past 12 months, did the food you bought not last and you didn't have the money to get more?: Never true Within the past 12 months, did you worry whether your food would run out before you got money to buy more?: Never true Do you have trouble paying for medicines?: No Do you have trouble getting transportation to medical appointments?: No Do you have trouble paying your heating and electricity bill?: No Do you have trouble taking care of your child, family member or friend?: No Do you have trouble with day-to-day activities such as bathing, preparing meals, shopping, managing finances, etc.?: No Are you currently unemployed and looking for a job?: No Are you interested in more education?: No Currently or been in a relationship where the following occur: No concerns reported THRIVE Score: 0 AUDIT C Alcohol Use Questionnaire (AUDIT-C) 3. How often do you have six or more drinks on one occasion?: Never Total Score: 0 WILLIAN-7 AMB Questionnaire WILLIAN-7 Date WILLIAN - 7 assessed: 07/13/24 Feeling nervous, anxious, or on edge: 0 = Not at all Not being able to stop or control worryin = Not at all Worrying too much about different things: 0 = Not at all Trouble relaxin = Not at all Being so restless that it is hard to sit still: 0 = Not at all Becoming easily annoyed or irritable: 0 = Not at all Feeling afraid as if something awful might happen: 0 = Not at all Total WILLIAN-7 score (0-4 normal; 5-9 mild; 10-14 moderate; 15-21 severe): 0 Source: Developed by Drs. Jose Vee, Alicia Muir, Chris Hammer and colleagues, with an educational mona from [employer]. Physical exam (Primary Care) Tobacco/Smoking Status: Tobacco use Status Tobacco use date assessed 07/13/24 07/13/24 11:13 Patient Tobacco Use Status Former Tobacco user 07/13/24 11:13 Tobacco use type Cigarette 07/13/24 11:13 e-Cigarette/Vaping Use Never Used 07/13/24 11:13 PHQ-9: PHQ-9 Score PHQ-9: Total score 0 07/13/24 11:13 Depression Screening Interpretation: Negative Thrive Assessment: Date of Thrive Assessment Date Thrive assessed 07/13/24 07/13/24 11:13 Currently or been in a relationship where the following occur: No concerns reported Telehealth Telehealth Location of provider rendering services: practice address Location of patient: address on file Patient Identification confirmed using: Name, : Yes Telehealth method: voice only ([phone], [employer]) Patient verbally consented to treatment: Yes Patient verbally consented to billing insurance company: Yes Patient informed of any privacy concerns related to visit: Yes Minutes spent on Phone/Video with Pt.: 25 Coding Level of Care Code Tele Est Pt Level 4 (52118) Diagnoses Migraine without aura and without status migrainosus, not intractable G43.009 Migraine type: without aura Status migrainosus presence: without status migrainosus Intractability: not intractable Acquired hypothyroidism E03.9 Hypothyroidism type: acquired Hypercholesterolemia E78.00 Generalized anxiety disorder F41.1 History of breast cancer Z85.3 Impaired glucose tolerance R73.02 Additional Codes PHQ-9 - 09541 - PHQ-9 Billing: Yes ([id number]) Assessment & Plan Assessment & Plan (1) Migraine: Code(s): G43.909 - Migraine, unspecified, not intractable, without status migrainosus Category: Medical Qualifiers: Migraine type: without aura Status migrainosus presence: without status migrainosus Intractability: not intractable Qualified Code(s): G43.009 - Migraine without aura, not intractable, without status migrainosus Plan: Patient on oxycodone p.r.n. for pain headache. Discussed with the patient that this is not the best medication for this. Patient is aware. Has for thyroid last tested in September will request for a new blood work. For cholesterol continuing to monitor (2) Hypothyroid: Comment: History of hyperthyroidism Dr. Rock changed to under active Code(s): E03.9 - Hypothyroidism, unspecified Category: Medical Qualifiers: Hypothyroidism type: acquired Qualified Code(s): E03.9 - Hypothyroidism, unspecified Plan: 09/25/2023 last blood work (3) Hypercholesterolemia: Code(s): E78.00 - Pure hypercholesterolemia, unspecified Category: Medical Plan: Avoid fried foods, chicken skin, eggs, butter margarine, pastries and meat. Be it pork or beef they have a lot of cholesterol (4) Generalized anxiety disorder: Comment: decline counselling 11/2021 Code(s): F41.1 - Generalized anxiety disorder Category: Medical Plan: Continue with lorazepam as needed (5) History of breast cancer: Comment: [address] and Dr. ellis January 2022 Code(s): Z85.3 - Personal history of malignant neoplasm of breast Category: Medical Plan: Patient is up-to-date with mammogram (6) Impaired glucose tolerance: Code(s): R73.02 - Impaired glucose tolerance (oral) Category: Medical Plan: Decrease the amount of carbohydrate intake, pasta, bread, rice and potatoes are all sugar and that is aside from all the sweet stuff, remember that fruits are good but they are Sweet also. Plan - Migraine Headache: Reevaluation of current headache management; potential alteration in pain management strategy as noxicodone might not be optimal. - Hypothyroidism: Schedule blood tests for thyroid function reassessment. - Hypercholesterolemia: Continue with current monitoring plan last reflected in September 2023 blood work. - Generalized Anxiety Disorder: Continue with azepam usage as needed. - Preventive Care: Reinforce importance of flu and COVID-19 vaccinations, acknowledged complete in the fall, with education on virus season awareness and protection measures. I discussed with the patient the appropriateness of her current pain management strategy for migraine headaches, advising that noxicodone might not be the most effective medication choice. Alternatives should be considered. I reviewed her blood work history and discussed the plan for upcoming thyroid function testing and ongoing cholesterol monitoring. Preventive measures for flu and current viral infections were emphasized, highlighting the utility of vaccines while cautioning about virus season through September. During the conversation, confusion regarding a GERD diagnosis in her medical records was clarified, and unnecessary implications were removed. Follow-up plans were outlined for completing blood tests before our next meeting, scheduling within three months. - Take azepam as directed when needed for anxiety. - Await scheduling information for thyroid blood work in the next few months. - Review pain management strategy with alternatives to noxicodone. - Get blood work done prior to the follow-up appointment. - Continue to protect against viral infections by wearing a mask during flu season. - Stay current with vaccinations to guard against current prevalent viruses. - Contact the office if new symptoms or other questions arise before the next scheduled visit.
--- OUTSIDE RECORDS SUMMARY | 2024-07-13 11:15 | XMS_ITS | Clinical Summary ---
Author Organization [facility] Address [address] [place] [address] Care Team Providers Care Viscosity Tester Name Role Phone Srikanth Joel DO Primary Care Provider [phone] Social History Tobacco Use Types Packs/Day Years Used Date Smoking Tobacco: Never Assessed Comments Unknown Sex and Gender Information Value Date Recorded Sex Assigned at Not on file Legal Sex Female 5:10 AM EDT Gender Identity Not on file Sexual Orientation Not on file Plan of Treatment Health Maintenance Due Date Last Done Comments Hepatitis C Screening 1954 DTaP/Tdap/Td (1 - Tdap) 1972 Mammogram/Breast Imaging 1994 Pneumococcal 50+ years (1 of 1 - PCV) 2004 Zoster (Shingrix) (1 of 2) 2004 Bone Density 12/18/2019 COVID-19 Vaccine ( - 2023-2 5 season) 2024 Influenza (#1) 2024 RSV (1 - 1-dose 75+ series) 2029 HPV Vaccine Aged Out No longer eligi ble based on patient's age to complete this topic Hep A Aged Out No longer eligi ble based on patient's age to complete this topic Hep B Aged Out No longer eligi ble based on patient's age to complete this topic Hib Aged Out No longer eligi ble based on patient's age to complete this topic Meningococcal ACWY Aged Out No longer eligible based on patient's age to complete this topic Pap Smear Discontinued Zoster (Zostavax) Discontinued Care Teams Viscosity Tester Relationship Specialty Start Date End Date Srikanth Joel DO [address] [place] [address] PCP - General 08/29/05
== END 2024-07-13 14:33 | disposition home or self-care (01) ==
LOC: HO.HMCH 11:11
PROVIDERS: PCP Internal Medicine; Visit Provider Internal Medicine
DX: G43.009 Migraine without aura, not intractable, without status migrainosus (principal); E03.9 Hypothyroidism, unspecified; E78.00 Pure hypercholesterolemia, unspecified; F41.1 Generalized anxiety disorder; Z85.3 Personal history of malignant neoplasm of breast; R73.02 Impaired glucose tolerance (oral)

== ENCOUNTER → 2024-07-13 11:11 | Outpatient (BNVA) | payer MEDICARE, SELFPAY | PROVIDERS: PCP Internal Medicine; Visit Provider Internal Medicine | DX: G43.009 Migraine without aura, not intractable, without status migrainosus (principal); E03.9 Hypothyroidism, unspecified; E78.00 Pure hypercholesterolemia, unspecified; F41.1 Generalized anxiety disorder; R73.02 Impaired glucose tolerance (oral); Z85.3 Personal history of malignant neoplasm of breast | CPT/HCPCS: 96127 ==

== ENCOUNTER 2024-10-13 14:40 | Outpatient (AMB) | payer MEDICARE, SELFPAY ==
--- NOTE | 2024-10-13 14:38 | MHC.PC.OV ---
Intake Visit Reasons: Migraine, Hypothyroidism, Hypercholesterolemia Allergies erythromycin base [Erythromycin Base] Allergy (Intermediate, Verified 07/13/24 11:12) RASH/HIVES Tobacco use date assessed: 07/13/24 Dental Screening Dental Screen Date: 07/13/24 [facility] Medical History Adult general medical exam Screening for diabetes mellitus Hypercholesterolemia Anxiety History of breast cancer Hypothyroid Migraine Surgical History History of colonoscopy Hx of myomectomy H/O breast biopsy History of tubal ligation Family History Father Bladder cancer Mother Hypertension Brother Acute CVA (cerebrovascular accident) Hx of CABG Sister Ovarian cancer Brain aneurysm Social History Housing: House Alcohol intake: current Alcohol intake frequency: a few times a week Alcohol type: wine Patient Tobacco Use Status: Former Tobacco user Tobacco use type: Cigarette Years Smoked: 23 years old e-Cigarette/Vaping Use: Never Used Second Hand Smoke Exposure: No service: No Current occupational status: retired Cognitive needs: No Hearing needs: No Vision needs: Yes Questionnaire Thrive Questionnaire Date Thrive assessed: 10/06/24 I am a: Parent/Caregiver What is your living situation today?: I have a steady place to live Within the past 12 months, did the food you bought not last and you didn't have the money to get more?: Never true Within the past 12 months, did you worry whether your food would run out before you got money to buy more?: Never true Do you have trouble paying for medicines?: No Do you have trouble getting transportation to medical appointments?: No Do you have trouble paying your heating and electricity bill?: No Do you have trouble taking care of your child, family member or friend?: No Do you have trouble with day-to-day activities such as bathing, preparing meals, shopping, managing finances, etc.?: No Are you currently unemployed and looking for a job?: No Are you interested in more education?: I choose not to answer this question Please select the resources that you would like help with: None Currently or been in a relationship where the following occur: No concerns reported THRIVE Score: 0 AUDIT C Alcohol Use Questionnaire (AUDIT-C) 1. How often do you have a drink containing alcohol?: 2-3 times a week 2. How many drinks containing alcohol do you have on a typical day when you are drinking?: 1 or 2 Total Score: 3 WILLIAN-7 AMB Questionnaire WILLIAN-7 Date WILLIAN - 7 assessed: 07/13/24 Feeling nervous, anxious, or on edge: 0 = Not at all Not being able to stop or control worryin = Not at all Worrying too much about different things: 0 = Not at all Trouble relaxin = Not at all Being so restless that it is hard to sit still: 0 = Not at all Becoming easily annoyed or irritable: 0 = Not at all Feeling afraid as if something awful might happen: 0 = Not at all Total WILLIAN-7 score (0-4 normal; 5-9 mild; 10-14 moderate; 15-21 severe): 0 Source: Developed by Drs. Jose Vee, Alicia Muir, Chris Hammer and colleagues, with an educational mona from [employer]. Physical exam (Primary Care) Tobacco/Smoking Status: Tobacco use Status Tobacco use date assessed 07/13/24 10/13/24 14:39 Patient Tobacco Use Status Former Tobacco user 10/13/24 14:39 Tobacco use type Cigarette 10/13/24 14:39 e-Cigarette/Vaping Use Never Used 10/13/24 14:39 Thrive Assessment: Date of Thrive Assessment Date Thrive assessed 10/06/24 10/13/24 14:39 Currently or been in a relationship where the following occur: No concerns reported Telehealth Telehealth Telehealth Platform: Telephone Location of provider rendering services: practice address Location of patient: address on file Patient Identification confirmed using: Name, : Yes Telehealth method: voice only Patient verbally consented to treatment: Yes Patient verbally consented to billing insurance company: Yes Patient informed of any privacy concerns related to visit: Yes Minutes spent on Phone/Video with Pt.: 25 Coding Level of Care Code Tele Est Pt Level 4 (57966) Diagnoses Migraine without aura and without status migrainosus, not intractable G43.009 Intractability: not intractable Migraine type: without aura Status migrainosus presence: without status migrainosus Acquired hypothyroidism E03.9 Hypothyroidism type: acquired Hypercholesterolemia E78.00 Generalized anxiety disorder F41.1 History of breast cancer Z85.3 Pelvic pain R10.2 Assessment & Plan Assessment & Plan (1) Migraine: Code(s): G43.909 - Migraine, unspecified, not intractable, without status migrainosus Category: Medical Qualifiers: Intractability: not intractable Migraine type: without aura Status migrainosus presence: without status migrainosus Qualified Code(s): G43.009 - Migraine without aura, not intractable, without status migrainosus Plan: Patient is advised to eat healthy, keep well hydrated, keep active and have adequate sleep. (2) Hypothyroid: Comment: History of hyperthyroidism Dr. Rock changed to under active Code(s): E03.9 - Hypothyroidism, unspecified Category: Medical Qualifiers: Hypothyroidism type: acquired Qualified Code(s): E03.9 - Hypothyroidism, unspecified Plan: Continue with present thyroid medication (3) Hypercholesterolemia: Code(s): E78.00 - Pure hypercholesterolemia, unspecified Category: Medical Plan: Avoid fried foods, chicken skin, eggs, butter margarine, pastries and meat. Be it pork or beef they have a lot of cholesterol LDL goal of less than 130 and triglyceride of less than 150 (4) Generalized anxiety disorder: Comment: decline counselling 11/2021 Code(s): F41.1 - Generalized anxiety disorder Category: Medical Plan: Continue with present medication as needed (5) History of breast cancer: Comment: [address]. [address] and Dr. ellis January Code(s): Z85.3 - Personal history of malignant neoplasm of breast Category: Medical Plan: Reminded about mammogram in January (6) Pelvic pain: Code(s): R10.2 - Pelvic and perineal pain Category: Medical Plan History of Present Illness The patient is a 68 year old female presenting with a wellness visit and concerns about a new abdominal sensation. Her medical history includes migraine, hypothyroidism, hypercholesterolemia, general anxiety disorder, and a history of breast cancer treated in 2002. She reports a sensation on the right side of her abdomen for approximately two and a half weeks. Describing it as a little stitch, it occurs intermittently without associated gastrointestinal or urinary symptoms. Her family history of ovarian cancer raises concern. Lab results from September 2024 highlight elevated LDL cholesterol at 135 mg/dL. She maintains her thyroid function adequately with her current medication. Review of Systems - General: Reports new abdominal sensation. - Gastrointestinal: Denies constipation and diarrhea. - Genitourinary: Denies dysuria or urinary symptoms. - Musculoskeletal: Reports ongoing strength training to address muscle mass concerns. - Endocrine: Denies issues with current thyroid management. - Psychological: Reports general anxiety. Plan For the new abdominal sensation, I have ordered a transvaginal and pelvic ultrasound due to the family history of ovarian cancer and the need to evaluate pelvic structures. Her cholesterol management will aim to lower LDL cholesterol with the goal of under 130 mg/dL and triglycerides under 150 mg/dL, maintaining her current medication regimen. We discussed lifestyle modifications, including diet and exercise, continue her current thyroid medication. She declined bone density evaluation citing concerns about potential treatments, choosing muscle-building activities instead. Follow-up will be based on ultrasound results and any changes. Patient was informed and verbally consented to the use of an ambient scribe for clinic note documentation during this visit. Discussion Notes During today's visit, I discussed the patient's new abdominal sensation and noted her family history of ovarian cancer, leading to the decision to order a transvaginal and pelvic ultrasound. We reviewed her lab results from September 2024, especially her cholesterol levels, and discussed lifestyle modifications to address hypercholesterolemia alongside her current medication. The discussion on declining the bone density test included her concerns regarding treatment options, and I supported her decision as she engages in muscle-building activities. I emphasized the continuation of her current thyroid medication, given her stable thyroid function. We concluded with a reaffirmation of lifestyle changes, and I informed the patient that the facility will contact her for scheduling the ultrasound examination. Patient Instructions - Expect a call to schedule the ultrasound examination. - Continue with your current thyroid medication. - Aim to keep your LDL cholesterol under 130 mg/dL; continue taking your current cholesterol medication. - Engage in regular physical activity, including strength training to support muscle mass. - Maintain a healthy diet, such as preparing meals using olive oil. - Drink plenty of fluids daily. - Monitor for any new symptoms or changes and report them promptly. - Follow up as instructed, particularly after receiving ultrasound results. Orders: Orders US pelvic and transvaginal Today R10.2 - Pelvic and perineal pain
--- OUTSIDE RECORDS SUMMARY | 2024-10-13 14:42 | XMS_ITS | Clinical Summary ---
Author Organization [facility] Address [address] [place] [address] Care Team Providers Care Rolling Machine Operator Name Role Phone Srikanth Joel DO Primary Care Provider [phone] Social History Tobacco Use Types Packs/Day Years [...] Smear Discontinued Zoster (Zostavax) Discontinued Care Teams Rolling Machine Operator Relationship Specialty Start Date End Date Srikanth Joel DO [address] [place] [address] PCP - General 08/29/05
== END 2024-10-13 16:12 | disposition home or self-care (01) ==
LOC: HO.HMCH 14:40
PROVIDERS: PCP Internal Medicine; Visit Provider Internal Medicine
DX: G43.009 Migraine without aura, not intractable, without status migrainosus (principal); E03.9 Hypothyroidism, unspecified; E78.00 Pure hypercholesterolemia, unspecified; F41.1 Generalized anxiety disorder; Z85.3 Personal history of malignant neoplasm of breast; R10.2 Pelvic and perineal pain

== ENCOUNTER → 2024-10-13 14:40 | Outpatient (BNVA) | payer MEDICARE, SELFPAY | PROVIDERS: PCP Internal Medicine; Visit Provider Internal Medicine | DX: Z13.89 Encounter for screening for other disorder (principal) ==

== ENCOUNTER 2024-10-26 10:33 | Outpatient (REF) | payer MEDICARE, SELFPAY ==
--- NOTE | ~2024-10-26 | US_ITS ---
EXAMINATION: US PELVIS TRANSABDOMINAL AND TRANSVAGINAL HISTORY: R10.2 - Pelvic and perineal pain COMPARISON: Comparison is made with the prior examination dated 12/21/2016. TECHNIQUE: Transabdominal and endovaginal real-time 2D ellis-scale ultrasound was performed. FINDINGS: Uterus: The uterus is retroverted and retroflexed, but is normal in size, measuring 7.1 x 3.5 x 5.2 cm. Myometrium has a normal echotexture. Multiple fibroids are again noted including a left lower fibroid measuring 1.8 x 1.4 x 1.5 cm (previously 1.8 x 1.2 x 1.9 cm), a left superior fibroid measuring 2.8 x 2.4 x 2.6 cm (previously 2.6 x 2.2 x 3.1 cm), a fundal fibroid measuring 1.8 x 1.7 x 1.2 cm which was not seen previously, and an anterior fibroid measuring 0.5 x 0.3 x 0.5 cm, which was not seen previously. Endometrium: The endometrial stripe measures 2 mm in thickness. Right ovary: The right ovary measures 0.7 x 1.6 x 1.1 cm. The right ovary is normal in size and echotexture. Left ovary: The left ovary measures 1.4 x 1.2 x 0.9 cm. The left ovary is normal in size and echotexture. Pelvic fluid: none. US/US pelvic and transvaginal IMPRESSION: Fibroid uterus as described. Electronically signed by: Jose Castro MD 10/26/2024 11:38 AM EDT
--- OUTSIDE RECORDS SUMMARY | 2024-10-26 11:09 | XMS_ITS | Clinical Summary ---
Author Organization [facility] Address [address] [place] [address] Care Team Providers Care Microsoft Office Instructor Name Role Phone Srikanth Joel DO Primary Care Provider [phone] Social History Tobacco Use Types Packs/Day Years [...] Smear Discontinued Zoster (Zostavax) Discontinued Care Teams Microsoft Office Instructor Relationship Specialty Start Date End Date Srikanth Joel DO [address] [place] [address] PCP - General 08/29/05
== END 2024-10-26 10:34 | disposition home or self-care (01) ==
LOC: HO.US 10:33
PROVIDERS: PCP Internal Medicine; Visit Provider Internal Medicine
DX: R10.2 Pelvic and perineal pain (principal)
CPT/HCPCS: 76830; 76856

== ENCOUNTER → 2024-10-26 10:35 | Outpatient (BNV) | payer MEDICARE, SELFPAY | PROVIDERS: PCP Internal Medicine; Visit Provider Radiology Diagnostic Radiology | DX: D25.9 Leiomyoma of uterus, unspecified (principal) | CPT/HCPCS: 76830; 76856 ==

== ENCOUNTER 2024-11-09 10:36 | Outpatient (AMB) | payer MEDICARE, SELFPAY ==
--- NOTE | 2024-11-09 10:36 | MHC.OFFVIS ---
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 Time spent included review of pertinent office notes in the electronic health record; review of laboratory and imaging results; review of personal family medical history; discussing diagnosis and plan of care with the patient; documenting the encounter in the EMR. Patient presents to discuss: History of lower pelvic discomfort noted as twinges, often on the right side, sometimes on the left. She discussed these concerns with her PCP along with her family history of ovarian cancer. She admits worrying about possibly having something be missed like ovarian cancer. [facility] Medical History Adult general medical exam Screening for diabetes mellitus Hypercholesterolemia Anxiety History of breast cancer Hypothyroid Migraine Surgical History History of colonoscopy Hx of myomectomy H/O breast biopsy History of tubal ligation Family History Father Bladder cancer Mother Hypertension Brother Acute CVA (cerebrovascular accident) Hx of CABG Sister Ovarian cancer Brain aneurysm Social History Housing: House Alcohol intake: current Alcohol intake frequency: a few times a week Alcohol type: wine Patient Tobacco Use Status: Former Tobacco user Tobacco use type: Cigarette Years Smoked: 23 years old e-Cigarette/Vaping Use: Never Used Second Hand Smoke Exposure: No service: No Current occupational status: retired Cognitive needs: No Hearing needs: No Vision needs: Yes Review of Systems Const All systems reviewed & are unremarkable except as noted in HPI and below Endo Reports no additional complaints Physical Exam Const General: cooperative, healthy appearing and no acute distress Psych Appearance: well kempt Attitude: cooperative Thought process: Normal thought process present Telehealth Telehealth Telehealth Platform: [email or web address] Location of provider rendering services: practice address Location of patient: address on file Patient Identification confirmed using: Name, : Yes Telehealth method: video Patient verbally consented to treatment: Yes Patient verbally consented to billing insurance company: Yes Patient informed of any privacy concerns related to visit: Yes Results Reviewed Results Reviewed: [address] [address] Ultrasound Report Signed Patient: Lyoda Oliveira MR#: [id number] : 1955 Acct:[id number] Age/Sex: 68 / F ADM Date: 10/26/24 Loc: HO.US Attending Dr: David Padilla MD Ordering Physician: David Padilla MD Date of Service: 10/26/24 Procedure(s): US pelvic and transvaginal Accession Number(s): [id number] cc: David Padilla MD~ EXAMINATION: US PELVIS TRANSABDOMINAL AND TRANSVAGINAL HISTORY: R10.2 - Pelvic and perineal pain COMPARISON: Comparison is made with the prior examination dated 12/21/2016. TECHNIQUE: Transabdominal and endovaginal real-time 2D ellis-scale ultrasound was performed. FINDINGS: Uterus: The uterus is retroverted and retroflexed, but is normal in size, measuring 7.1 x 3.5 x 5.2 cm. Myometrium has a normal echotexture. Multiple fibroids are again noted including a left lower fibroid measuring 1.8 x 1.4 x 1.5 cm (previously 1.8 x 1.2 x 1.9 cm), a left superior fibroid measuring 2.8 x 2.4 x 2.6 cm (previously 2.6 x 2.2 x 3.1 cm), a fundal fibroid measuring 1.8 x 1.7 x 1.2 cm which was not seen previously, and an anterior fibroid measuring 0.5 x 0.3 x 0.5 cm, which was not seen previously. Endometrium: The endometrial stripe measures 2 mm in thickness. Right ovary: The right ovary measures 0.7 x 1.6 x 1.1 cm. The right ovary is normal in size and echotexture. Left ovary: The left ovary measures 1.4 x 1.2 x 0.9 cm. The left ovary is normal in size and echotexture. Pelvic fluid: none. US/US pelvic and transvaginal IMPRESSION: Fibroid uterus as described. Electronically signed by: Jose Castro MD 10/26/2024 11:38 AM EDT Dictated By: Jose Castro MD Signed By: <Electronically signed by Jose Castro MD in OV> 10/26/24 1138 DD/ 1047 TD/TT: 10/26/24 1103 Top Lift And Automatic Window Repairer: Assessment & Plan Assessment & Plan (1) Fibroids: Code(s): D21.9 - Benign neoplasm of connective and other soft tissue, unspecified Category: Medical Plan: Discussed: Ultrasound findings-comparison to ultrasound scan from 2017. Current identifies 2 new fibroids. IMPRESSION: Fibroid uterus as described. Counseled re: Leiomyoma: common pelvic neoplasm. Differential diagnosis-may include but not limited to- leiomyosarcoma which is a rare uterine sarcoma 3-7/100,000, difficult to distinguish from fibroids on ultrasound from uterine sarcoma's. Unlikely any single test will have a highly positive predictive value. Hysterectomy is not recommended for sole purpose of excluding malignant neoplasm. Consult for surgical exploration, medical treatment, other treatments, verses expectant management, pros and cons, risks and benefits. Expectant management follow up in 6 months, then yearly for stability. Patient prefers to proceed with expectant management. Referral to MD if indicated for level of care if indicated Report any PMB, pelvic pressure, bloating, or pain changes. The patient expressed understanding and agreement with the plan of care. All of her questions and concerns were addressed to the best of my ability. . (2) Pelvic pain: Code(s): R10.2 - Pelvic and perineal pain Category: Medical Plan Advised to schedule an in office appointment to evaluate her pelvic discomfort. The patient expressed understanding and agreement with the plan of care. All of her questions and concerns were addressed to the best of my ability. This note is constructed using voice recognition software. While every effort has been made to ensure accuracy, top collar maker errors may have been included. Coding Level of Care Code Tele Est Pt Level 3 (00913) Diagnoses Fibroids D21.9 Pelvic pain R10.2
--- OUTSIDE RECORDS SUMMARY | 2024-11-09 12:27 | XMS_ITS | Clinical Summary ---
Author Organization [facility] Address [address] [place] [address] Care Team Providers Care Laboratory Monitor Name Role Phone Srikanth Joel DO Primary Care Provider [phone] Social History Tobacco Use Types Packs/Day Years [...] ( - 2023-2 5 season) 2024 Influenza (Season Ended) 2025 RSV (1 - 1-dose 75+ series) 2029 [...] Smear Discontinued Zoster (Zostavax) Discontinued Care Teams Laboratory Monitor Relationship Specialty Start Date End Date Srikanth Joel DO [address] [place] [address] PCP - General 08/29/05
== END 2024-11-09 13:06 | disposition home or self-care (01) ==
LOC: HO.HWS 10:36
PROVIDERS: PCP Internal Medicine; Visit Provider Advanced Practice Midwife
DX: D21.9 Benign neoplasm of connective and other soft tissue, unspecified (principal); R10.2 Pelvic and perineal pain
CPT/HCPCS: 99213

== ENCOUNTER → 2024-11-09 10:36 | Outpatient (BNVA) | payer MEDICARE, SELFPAY | PROVIDERS: PCP Internal Medicine; Visit Provider Advanced Practice Midwife | DX: Z13.89 Encounter for screening for other disorder (principal) ==

== ENCOUNTER 2024-11-22 14:09 | Outpatient (AMB) | payer MEDICARE, SELFPAY ==
--- NOTE | 2024-11-22 14:12 | MHC.OFFVIS ---
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 She reports occasional twinges in the pelvic area. No vaginal bleeding. She denies any vaginal discharge or odor. COUNTS INCLUDE 234 BEDS AT THE [facility] Medical History Adult general medical exam Screening for diabetes mellitus Hypercholesterolemia Anxiety History of breast cancer Hypothyroid Migraine Surgical History History of colonoscopy Hx of myomectomy H/O breast biopsy History of tubal ligation Family History Father Bladder cancer Mother Hypertension Brother Acute CVA (cerebrovascular accident) Hx of CABG Sister Ovarian cancer Brain aneurysm Social History Housing: House Alcohol intake: current Alcohol intake frequency: a few times a week Alcohol type: wine Patient Tobacco Use Status: Former Tobacco user Tobacco use type: Cigarette Years Smoked: 23 years old e-Cigarette/Vaping Use: Never Used Second Hand Smoke Exposure: No service: No Current occupational status: retired Cognitive needs: No Hearing needs: No Vision needs: Yes Review of Systems Const All systems reviewed & are unremarkable except as noted in HPI and below Physical Exam Const General: cooperative, healthy appearing and no acute distress Orientation/consciousness: patient oriented x3 GI Inspection: Yes normal to inspection Palpation (GI): Soft to palpation and Other GI palpation findings present (Nontender) Rectal Exam - Female: visual inspection normal General: Yes bladder normal to palpation External Female Exam: normal appearance of the urethra Speculum Exam - Vagina: normal appearance of the vagina, normal palpation, normal vaginal discharge and vagina atrophic Speculum Exam - Cervix: normal appearance of the cervix and normal palpation Bimanual exam- vagina & uterus: normal bimanual exam, normal palpation, uterine size normal, bladder normal to palpation, normal palpation, uterine shape normal and non-tender Bimanual Exam- Adnexa, other: normal adnexae Neuro General: patient oriented x3 Results Reviewed Results Reviewed: [place] [address] Ultrasound Report Signed Patient: Loyda Oliveira MR#: [id number] : 1955 Acct:[id number] Age/Sex: 68 / F ADM Date: 10/26/24 Loc: .US Attending Dr: David Padilla MD Ordering Physician: David Padilla MD Date of Service: 10/26/24 Procedure(s): US pelvic and transvaginal Accession Number(s): [id number] cc: David Padilla MD~ EXAMINATION: US PELVIS TRANSABDOMINAL AND TRANSVAGINAL HISTORY: R10.2 - Pelvic and perineal pain COMPARISON: Comparison is made with the prior examination dated 12/21/2016. TECHNIQUE: Transabdominal and endovaginal real-time 2D ellis-scale ultrasound was performed. FINDINGS: Uterus: The uterus is retroverted and retroflexed, but is normal in size, measuring 7.1 x 3.5 x 5.2 cm. Myometrium has a normal echotexture. Multiple fibroids are again noted including a left lower fibroid measuring 1.8 x 1.4 x 1.5 cm (previously 1.8 x 1.2 x 1.9 cm), a left superior fibroid measuring 2.8 x 2.4 x 2.6 cm (previously 2.6 x 2.2 x 3.1 cm), a fundal fibroid measuring 1.8 x 1.7 x 1.2 cm which was not seen previously, and an anterior fibroid measuring 0.5 x 0.3 x 0.5 cm, which was not seen previously. Endometrium: The endometrial stripe measures 2 mm in thickness. Right ovary: The right ovary measures 0.7 x 1.6 x 1.1 cm. The right ovary is normal in size and echotexture. Left ovary: The left ovary measures 1.4 x 1.2 x 0.9 cm. The left ovary is normal in size and echotexture. Pelvic fluid: none. US/US pelvic and transvaginal IMPRESSION: Fibroid uterus as described. Electronically signed by: Jose Castro MD 10/26/2024 11:38 AM EDT RP Dictated By: Jose Castro MD Signed By: <Electronically signed by Jose Castro MD in OV> 10/26/24 1138 DD/ 1047 TD/TT: 10/26/24 1103 Power Grader Operator: Assessment & Plan Assessment & Plan (1) Fibroids: Code(s): D21.9 - Benign neoplasm of connective and other soft tissue, unspecified Category: Medical Plan Discussed: Ultrasound findings-history of fibroids, 2 stable, to previously not seen. Counseled re: Leiomyoma: common pelvic neoplasm. Differential diagnosis-may include but not limited to- leiomyosarcoma which is a rare uterine sarcoma 3-7/100,000, difficult to distinguish from fibroids on ultrasound from uterine sarcoma's. Unlikely any single test will have a highly positive predictive value. Hysterectomy is not recommended for sole purpose of excluding malignant neoplasm. Consult for surgical exploration, medical treatment, other treatments, verses expectant management, pros and cons, risks and benefits. Expectant management follow up in 6 months, then yearly for stability. Patient prefers to proceed with expectant management. Referral to MD if indicated for level of care if indicated Report any PMB/AUB, pelvic pressure, bloating, or pain. The patient expressed understanding and agreement with the plan of care. All of her questions and concerns were addressed to the best of my ability. This note is constructed using voice recognition software. While every effort has been made to ensure accuracy, human relations manager errors may have been included. Orders: Orders US pelvic and transvaginal 04/23/25 D21.9 - Benign neoplasm of connective and other soft tissue, unspecified Coding Level of Care Code Est Pt Level 3 (29617) Diagnoses Fibroids D21.9
--- OUTSIDE RECORDS SUMMARY | 2024-11-22 16:17 | XMS_ITS | Clinical Summary ---
Author Organization [facility] Address [address] [place] [address] Care Team Providers Care Division Commander Name Role Phone Srikanth Joel DO Primary Care Provider [phone] Social History Tobacco Use Types Packs/Day Years [...] Smear Discontinued Zoster (Zostavax) Discontinued Care Teams Division Commander Relationship Specialty Start Date End Date Srikanth Joel DO [address] [place] [address] PCP - General 08/29/05
== END 2024-11-22 14:55 | disposition home or self-care (01) ==
LOC: HO.HWS 14:09
PROVIDERS: PCP Internal Medicine; Visit Provider Advanced Practice Midwife
DX: D21.9 Benign neoplasm of connective and other soft tissue, unspecified (principal)
CPT/HCPCS: 99213

== ENCOUNTER → 2024-11-22 14:09 | Outpatient (BNVA) | payer MEDICARE, SELFPAY | PROVIDERS: PCP Internal Medicine; Visit Provider Advanced Practice Midwife | DX: D21.9 Benign neoplasm of connective and other soft tissue, unspecified (principal) | CPT/HCPCS: 99212 ==

== ENCOUNTER 2025-01-29 13:49 | Outpatient (REF) | payer MEDICARE, SELFPAY ==
--- OUTSIDE RECORDS SUMMARY | 2025-01-29 15:08 | XMS_ITS | Clinical Summary ---
Author Organization [facility] Address [address] [place] [address] Care Team Providers Care Country Manager Name Role Phone Srikanth Joel DO Primary Care Provider [phone] Social History Tobacco Use Types Packs/Day Years [...] - 2023-2 5 season) 2024 Influenza (#1) 2025 RSV (1 - 1-dose 75+ series) 2029 HPV Vaccine (No Doses Required) Completed Hep A Aged Out No longer eligi [...] Smear Discontinued Zoster (Zostavax) Discontinued Care Teams Country Manager Relationship Specialty Start Date End Date Srikanth Joel DO [address] [place] [address] PCP - General 08/29/05
--- OUTSIDE RECORDS SUMMARY | 2025-01-29 15:08 | XMS_ITS | Patient Health Record ---
Author Organization [facility] Address [address] [place] [address] Care Team Providers Care Rate Setter Name Role Phone David Padilla MD Primary Care Provider Jose Avila [phone] Allergies Allergen (clinical drug ingredient) Drug/Non Drug Allergy documented on EMR Reaction Allergy Type Onset Date Status erythromycin Erythromycin Unknown Drug Allergy A ctive Reason For Referral No Information Medications Medication SIG (Take, Route, Frequency, Duration) Notes Start Date End Date Status Flaxseed Oil 1000 MG as directed Orally Active diazePAM 5 MG 1 tablet as needed Oral twice a day QHS Active Levothyroxine Sodium 88 MCG TAKE 1 TABLET BY MOUTH EVERY DAY Oral for 30 Active Fish Oil 1000 MG 1 capsule Orally Once a day for 30 day(s) Active Ibuprofen 200 MG 1 tablet with food or milk as needed Orally as directed PRN migraines Active oxyCODONE HCl 5 MG (Schedule II Drug) TAKE 1 TABLET BY MOUTH EVERY DAY NEEDED Oral as directed PRN migraines Active Calcium 600 MG 1 tablet Orally Once a day Active Immunizations Vaccine Route Administration Date Status Comme nts Influenza Unknown 03/07/2019 Administered Social History Tobacco Use: Social History Observation Description Date Details (start date - stop date) Former Smoker NA - NA Tobacco Use/Smoking Question Answer Notes Patient is a former smoker When did you stop smoking? 30 plus years How long has it been since you last smoked? > 10 years Alcohol Screen Question Answer Notes Did you have a drink contain ing alcohol in the past year? Yes How often did you have a dri nk containing alcohol in the past year? 4 or more times a week (4 points) How many drinks did you have on a typical day when you were drinking in the past year? 1 or 2 drinks (0 point) How often did you have 6 or more drinks on one occasion in the past year? Never (0 point) Points 4 Interpretation Positive Section Notes: Nonsmoker; 1-2 glasses red w ine at dinner Problems Problem Type SNOMED Code ICD Code Onset Dates Problem Status W/U Status Risk Notes Problem [id number] Encounter for screening for malignant neoplasm of colon (Z12.11) Active confirmed Problem [id number] Preprocedural examination (Z01.818) Active confirmed Plan Of Treatment Future Test Test Name Order Date COLONOSCOPY 04/20/2019 Insurance Providers Payer Name Payer Address Payer Phone Subscriber Number Group Number Insured Name Patient Relationship to Insured Coverage Start Date Coverage End Date [facility] BCBS PROFESSIONAL CLAIMS [address] [place] [address] [id number] [address] JP Self - patient is the insured Medical (General) History Medical History History ICD Code Right breast cancer in [id number] en for 5 years Palpitations--no sig. changes on a Fay r monitor Denies SC,DM,CVA,Lung disease,renal dise ase Hypothyroidism Migraines Surgical History Surgery Date(Month/Year) Breast biopsy 2002 Uterine fibroid removal
--- OUTSIDE RECORDS SUMMARY | 2025-01-29 15:09 | XMS_ITS | Clinical Summary ---
Author Organization [facility] Address [address] [address] Phone Care Team Providers Care Vision Impaired Teacher Name Role Phone David Padilla MD Primary Care Provider [phone] Social History Tobacco Use Types Packs/Day Years Used Date Smoking Tobacco: Never Assessed Education Answer Date Recorded Are you interested in more education? Not on vinod e 10/02/2022 Are you concerned about learning? Not on file 10/02/2022 No 10/02/2022 No 10/02/2022 Digital Access Answer Date Recorded No 10/31/2022 No 10/31/2022 No 10/31/2022 Reliable internet access at home? Not on file 10/31/2022 Device with a working camera? Not on file Comments Unknown Sex and Gender Information Value Date Recorded Sex Assigned at Not on file Legal Sex Female 9:55 PM EDT Gender Identity Not on file Sexual Orientation Not on file Plan of Treatment Health Maintenance Due Date Last Done Comments LIPID PANEL 1954 DEPRESSION SCREENING 1966 SMOKING Hx and SMOKELESS TOBACCO SCREENING 12/18/1967 HEPATITIS C SCREENING 1972 MAMMOGRAM 1994 COLOGUARD 12/18/1999 COLONOSCOPY 12/18/1999 COLORECTAL CANCER SCREENING 12/18/1999 FIT TEST 12/18/1999 FOBT 12/18/1999 SIGMOIDOSCOPY 12/18/1999 VIRTUAL COLONOSCOPY 12/18/1999 OSTEOPOROSIS SCREENING INITIAL (ONE-TIME) 12/18/2019 COVID-19 VACCINE ( season) 2024 04/25/2021, 09/30/2020, 09/02/2020 INFLUENZA VACCINE (#1) 2025 , 02/24/2020, 03/05/2019, Additional history exists PNEUMOCOCCAL VACCINES (50+ years) (3 of 3 - PCV20 or PCV21) 05/10/2026 05/10/2021, 04/03/2019 RSV VACCINE (1 - 1-dose 75+ series) 2029 Adult Td,Tdap Booster 06/26/2031 06/26/2021 ZOSTER VACCINES Completed 08/11/2021, 05/26/2021 HEPATITIS A VACCINES Aged Out No long er eligible based on patient's age to complete this topic HIB VACCINES Aged Out No longer eligi ble based on patient's age to complete this topic MENINGOCOCCAL VACCINES (ACWY) Aged Out No longer eligible based on patient's age to complete this topic MENINGOCOCCAL VACCINES (B) Aged Out N o longer eligible based on patient's age to complete this topic Medical Devices Not on file Insurance [place] [address] [place] [id number] [address] [place] [address] [address] [place] [address]O POS [facility] H[facility] POS [facility] Care Teams Vision Impaired Teacher Relationship Specialty Start Date End Date David Padilla MD [address] [place] [address] PCP - General 03/22/17 Additional Source Comments The information contained in this document represents components of the legal health record. It is not the complete legal health record.[facility]
== END 2025-01-29 13:50 | disposition home or self-care (01) ==
LOC: HO.MAMMO 13:49
PROVIDERS: PCP Internal Medicine; Visit Provider Internal Medicine
DX: Z12.31 Encounter for screening mammogram for malignant neoplasm of breast (principal)
CPT/HCPCS: 77063; 77067

== ENCOUNTER → 2025-01-29 14:00 | Outpatient (BNV) | payer MEDICARE, SELFPAY | PROVIDERS: PCP Internal Medicine; Visit Provider Radiology Body Imaging | DX: Z12.31 Encounter for screening mammogram for malignant neoplasm of breast (principal) | CPT/HCPCS: 77063; 77067 ==

== ENCOUNTER 2025-02-08 14:04 | Outpatient (AMB) | payer MEDICARE, SELFPAY ==
[2025-02-08 14:06] VITALS: BP 110/68; PULSE 70; O2SAT 97; BMI 17.8
--- NOTE | 2025-02-08 14:06 | A.OFFPC_ITS ---
Vital Signs 02/08/25 14:06 Height 5 ft 5 in Weight 107 lb BMI 17.8 BP 110/68 Blood Pressure Location Lt brachial Position Sitting Pulse 70 Pulse Source Pulse Oximeter Pulse Oximetry (%) 97 Oxygen Delivery Method Room Air Intake Visit Reasons: wlilian, migraine Allergies erythromycin base (Erythromycin Base) Allergy (Intermediate, Verified 02/08/25 14:07) RASH/HIVES Medication List - Last Reconciled 02/08/25 by David Padilla MD calcium carb-vitamin D3-vit K2 600 mg-1,000 unit-90 mcg tabs PO cyanocobalamin (vitamin B-12) 1,000 mcg PO DAILY diazepam 5 mg PO BID PRN 30 days folic acid 0.4 mg PO DAILY levothyroxine 88 mcg orally once a day and 2 on wednesday; 90 days oxycodone 5 mg PO DAILY PRN Tobacco use date assessed: 07/13/24 Fall risk assessment: No Falls in past year Last assessed Fall Risk: 02/08/25 Dental Screening Dental Screen Date: 07/13/24 [facility] Medical History Adult general medical exam Screening for diabetes mellitus Hypercholesterolemia Anxiety History of breast cancer Hypothyroid Migraine Surgical History History of colonoscopy Hx of myomectomy H/O breast biopsy History of tubal ligation Family History Father Bladder cancer Mother Hypertension Brother Acute CVA (cerebrovascular accident) Hx of CABG Sister Ovarian cancer Brain aneurysm Social History Housing: House Alcohol intake: current Alcohol intake frequency: a few times a week Alcohol type: wine Patient Tobacco Use Status: Former Tobacco user Tobacco use type: Cigarette Years Smoked: 23 years old e-Cigarette/Vaping Use: Never Used Second Hand Smoke Exposure: No service: No Current occupational status: retired Cognitive needs: No Hearing needs: No Vision needs: Yes Questionnaire PHQ-9 Over the last 2 weeks, how often have you been bothered by any of the following problems? 1. Little interest or pleasure in doing things: not at all 2. Feeling down, depressed, or hopeless: not at all 3. Trouble falling or staying asleep, or sleeping too much: not at all 4. Feeling tired or having little energy: not at all 5. Poor appetite or overeating: not at all 6. Feeling bad about yourself - or that you are a failure or have let yourself or your family down: not at all 7. Trouble concentrating on things, such as reading the newspaper or watching television: not at all 8. Moving or speaking so slowly that other people could have noticed. Or the opposite - being so fidgety or restless that you have been moving around a lot more than usual: not at all 9. Thoughts that you would be better off or of hurting yourself in some way: not at all Total score: 0 Depression Screening Interpretation: Negative Depression Screening Done: Yes Source: Developed by Drs. Jose Vee, Alicia Muir, Chris Hammer and colleagues, with an educational mona from [employer]. Thrive Questionnaire Date Thrive assessed: 10/06/24 I am a: Parent/Caregiver What is your living situation today?: I have a steady place to live Within the past 12 months, did the food you bought not last and you didn't have the money to get more?: Never true Within the past 12 months, did you worry whether your food would run out before you got money to buy more?: Never true Do you have trouble paying for medicines?: No Do you have trouble getting transportation to medical appointments?: No Do you have trouble paying your heating and electricity bill?: No Do you have trouble taking care of your child, family member or friend?: No Do you have trouble with day-to-day activities such as bathing, preparing meals, shopping, managing finances, etc.?: No Are you currently unemployed and looking for a job?: No Are you interested in more education?: I choose not to answer this question Please select the resources that you would like help with: None Currently or been in a relationship where the following occur: No concerns reported THRIVE Score: 0 AUDIT C Alcohol Use Questionnaire (AUDIT-C) 1. How often do you have a drink containing alcohol?: 2-3 times a week 2. How many drinks containing alcohol do you have on a typical day when you are drinking?: 1 or 2 3. How often do you have six or more drinks on one occasion?: Never Total Score: 3 WILLIAN-7 AMB Questionnaire WILLIAN-7 Date WILLIAN - 7 assessed: 07/13/24 Source: Developed by Drs. Jose Vee, Alicia Muir, Chris Hammer and colleagues, with an educational mona from [employer]. Physical exam (Primary Care) Vital Signs: Last Vital Signs Pulse 70 02/08/25 14:06 BP 110/68 02/08/25 14:06 Pulse Ox 97 02/08/25 14:06 Oxygen Delivery Method Room Air 02/08/25 14:06 BMI result Body Mass Index 17.8 Tobacco/Smoking Status: Tobacco use Status Tobacco use date assessed 07/13/24 02/08/25 14:11 Patient Tobacco Use Status Former Tobacco user 02/08/25 14:11 Tobacco use type Cigarette 02/08/25 14:11 e-Cigarette/Vaping Use Never Used 02/08/25 14:11 PHQ-9: PHQ-9 Score PHQ-9: Total score 0 02/08/25 14:28 Depression Screening Interpretation: Negative Thrive Assessment: Date of Thrive Assessment Date Thrive assessed 10/06/24 02/08/25 14:11 Currently or been in a relationship where the following occur: No concerns re ported Const General: alert; No acute distress Eyes Conjunctivae: conjunctivae normal Resp Auscultation: clear to auscultation bilaterally Cardio Rate: regular rate Rhythm: regular rhythm GI Inspection: Yes normal to inspection Extrem General: Yes normal to inspection and No edema Coding Level of Care Code Est Pt Level 4 (93354) Complex EM visit Add On G2211 Diagnoses Acquired hypothyroidism E03.9 Hypothyroidism type: acquired History of breast cancer Z85.3 Migraine without aura and without status migrainosus, not intractable G43.009 Intractability: not intractable Migraine type: without aura Status migrainosus presence: without status migrainosus Generalized anxiety disorder F41.1 Hypercholesterolemia E78.00 Assessment & Plan Assessment & Plan (1) Hypothyroid: Comment: History of hyperthyroidism Dr. Rock changed to under active Code(s): E03.9 - Hypothyroidism, unspecified Category: Medical Qualifiers: Hypothyroidism type: acquired Qualified Code(s): E03.9 - Hypothyroidism, unspecified Plan: Continue with thyroid medication. September 2024 last blood work (2) History of breast cancer: Comment: [address]. [address] and Dr. ellis January Code(s): Z85.3 - Personal history of malignant neoplasm of breast Category: Medical Plan: Up-to-date with mammogram (3) Migraine: Code(s): G43.909 - Migraine, unspecified, not intractable, without status migrainosus Category: Medical Qualifiers: Intractability: not intractable Migraine type: without aura Status migrainosus presence: without status migrainosus Qualified Code(s): G43.009 - Migraine without aura, not intractable, without status migrainosus Plan: Discussed with the patient regarding narcotic pain medications. Patient is advised to eat healthy, keep well hydrated, keep active and have adequate sleep. (4) Generalized anxiety disorder: Comment: decline counselling 11/2021 Code(s): F41.1 - Generalized anxiety disorder Category: Medical Plan: Continue with present medication as needed (5) Hypercholesterolemia: Code(s): E78.00 - Pure hypercholesterolemia, unspecified Category: Medical Plan: Avoid fried foods, chicken skin, eggs, butter margarine, pastries and meat. Be it pork or beef they have a lot of cholesterol LDL goal of less than 130 and triglyceride of less than 150 Plan History of Present Illness The patient is a 69-year-old female presenting for a follow-up visit and preventative care. She has a history of hypothyroidism, which is currently managed with medication. Her last thyroid function test was conducted in September 2024, showing normal results. The patient also has hypercholesterolemia, with her last blood work in September 2024 indicating an LDL cholesterol level of 136 mg/dL, which is mildly elevated. She is advised to maintain an LDL goal of less than 130 mg/dL. She has generalized anxiety disorder, which is part of her medical history. The patient has a history of breast cancer diagnosed in 2002. She is up-to-date with her mammograms, with the last one conducted in January 2025. She follows up with gynecology for uterine fibroids, with the last ultrasound in October showing fibroid uterus. She reports occasional discomfort and loose stools, possibly related to the fibroids. Her preventative care includes a colon cancer screening last done in 2019 and a mammogram in January 2025. Health Maintenance - Mammogram up-to-date as of January 2025 - Colon cancer screening last performed in 2019 - Shingles vaccination completed - Tetanus vaccination up-to-date - Pneumonia vaccination completed in 2020 Social History Review of Systems - General: Reports good appetite, denies sweating - Gastrointestinal: Reports occasional loose stools Physical Exam Results - Labs: Normal blood count and platelet count as of September 2024 - Labs: Creatinine level at 0.53 mg/dL, electrolytes normal - Labs: LDL cholesterol at 136 mg/dL, B12 and folic acid within normal limits - Imaging: Ultrasound in October showed fibroid uterus Plan Patient was informed and verbally consented to the use of an ambient scribe for clinic note documentation during this visit. 1. Hypothyroidism The patient will continue with her current thyroid medication regimen, as her thyroid function tests are within normal limits. 2. Hypercholesterolemia The patient is advised to maintain an LDL cholesterol goal of less than 130 mg/dL through dietary modifications and medication adherence. 3. Generalized Anxiety Disorder The patient's generalized anxiety disorder is part of her medical history and is being managed as per her current treatment plan. 4. History Of Breast Cancer The patient is up-to-date with her mammograms, with the last one conducted in January 2025, and will continue regular screenings. 5. Uterine Fibroids The patient will continue to follow up with gynecology for monitoring of uterine fibroids, with an ultrasound planned for April. Discussion Notes During the visit, I discussed with the patient the importance of maintaining her current medication regimen for hypothyroidism and hypercholesterolemia. We reviewed her recent lab results and emphasized the need to keep her LDL cholesterol below 130 mg/dL. I also advised her to continue regular screenings for breast cancer and to follow up with gynecology for her uterine fibroids. Patient Instructions - Continue taking thyroid medication as prescribed. - Follow dietary recommendations to manage cholesterol levels. - Schedule and attend regular mammograms and follow up with gynecology for fibroid monitoring.
--- OUTSIDE RECORDS SUMMARY | 2025-02-08 15:23 | XMS_ITS | Clinical Summary ---
Author Organization [facility] Address [address] [id number] Phone Care Team Providers Care Distribution Center Manager Name Role Phone David Padilla MD Primary Care Provider [phone] Social History Tobacco Use Types Packs/Day Years [...] COLONOSCOPY 12/18/1999 OSTEOPOROSIS SCREENING INITIAL (ONE-TIME) 12/18/2019 INFLUENZA VACCINE (#1) 2025 , 02/24/2020, 03/05/2019, Additional history exists COVID-19 VACCINE (4 - 2024- season) 2025 04/25/2021, 09/30/2020, 09/02/2020 PNEUMOCOCCAL VACCINES (50+ years) (3 of 3 [...] Devices Not on file Insurance [place] [address] [place], [place] [id number] [place] [address] [place] [address] [place] [address] [place] [address]O POS [facility] HMO POS [facility] HMO POS [facility] HMO POS [email or web address]O POS Care Teams Distribution Center Manager Relationship Specialty Start Date End Date David Padilla MD [address] [place] [address] PCP - General 03/22/17 Additional Source Comments The information contained in this document represents components of the legal health record. It is not the complete legal health record.[facility]
--- OUTSIDE RECORDS SUMMARY | 2025-02-08 15:23 | XMS_ITS | Clinical Summary ---
Author Organization [facility] Address [address] [place] [address] Care Team Providers Care Airline Hostess Name Role Phone Srikanth Joel DO Primary Care Provider [phone] Social History Tobacco Use Types Packs/Day Years [...] COVID-19 Vaccine ( - 2023-2 5 season) 2025 Influenza (#1) 2025 RSV (1 - 1-dose [...] Smear Discontinued Zoster (Zostavax) Discontinued Care Teams Airline Hostess Relationship Specialty Start Date End Date Srikanth Joel DO [address] [place] [address] PCP - General 08/29/05
--- OUTSIDE RECORDS SUMMARY | 2025-02-08 15:23 | XMS_ITS | Patient Health Record ---
Author Organization [facility] Address [address] [place] [address] Care Team Providers Care Bioprocessing Manufacturing Technician Name Role Phone David Padilla MD Primary Care Provider Jose Avila [phone] Allergies Allergen (clinical drug ingredient) Drug/Non Drug [...] Problem Status W/U Status Risk Notes Problem [id number] Encounter for screening for malignant neoplasm of colon (Z12.11) Active confirmed Problem [id number] Preprocedural examination (Z01.818) Active confirmed Plan Of Treatment Future Test Test Name Order Date COLONOSCOPY 04/20/2019 Insurance Providers Payer Name Payer Address Payer Phone Subscriber Number Group Number Insured Name Patient Relationship to Insured Coverage Start Date Coverage End Date [facility] BCBS PROFESSIONAL CLAIMS [address] [place] [address] [id number] [address] JP Self - patient is the insured Medical (General) History Medical History History ICD Code Right breast cancer in [id number] en for 5 years Palpitations--no sig. changes on a Fay r monitor Denies AL,DM,CVA,Lung disease,renal dise ase Hypothyroidism Migraines Surgical History Surgery Date(Month/Year) Breast biopsy 2002 Uterine fibroid removal
== END 2025-02-08 14:46 | disposition home or self-care (01) ==
LOC: HO.HMCH 14:05
PROVIDERS: PCP Internal Medicine; Visit Provider Internal Medicine
DX: E03.9 Hypothyroidism, unspecified (principal); Z85.3 Personal history of malignant neoplasm of breast; G43.009 Migraine without aura, not intractable, without status migrainosus; F41.1 Generalized anxiety disorder; E78.00 Pure hypercholesterolemia, unspecified

== ENCOUNTER → 2025-02-08 14:04 | Outpatient (BNVA) | payer MEDICARE, SELFPAY | PROVIDERS: PCP Internal Medicine; Visit Provider Internal Medicine | DX: E03.9 Hypothyroidism, unspecified (principal); G43.009 Migraine without aura, not intractable, without status migrainosus; F41.1 Generalized anxiety disorder; E78.00 Pure hypercholesterolemia, unspecified; Z85.3 Personal history of malignant neoplasm of breast | CPT/HCPCS: 99212 ==

== ENCOUNTER 2025-04-23 13:50 | Outpatient (REF) | payer MEDICARE, SELFPAY ==
--- NOTE | ~2025-04-23 | US_ITS ---
EXAMINATION: US PELVIS CLINICAL INFORMATION: Benign neoplasm of connective and other soft tissue, unspecified; uterine fibroids. COMPARISON: 10/26/2024 pelvic ultrasound. TECHNIQUE: Ultrasound of the pelvis is performed using both transabdominal and transvaginal transducers along with Doppler. Transvaginal imaging is performed due to inadequate visualization transabdominally. FINDINGS: Uterus: The uterus is retroverted, retroflexed, and measures 6.7 x 3.7 x 5.3 cm. Volume = 68.7 mL. Normal-appearing cervix. The double wall endometrial thickness is 4 mm. It is uniform without irregularity. The uterus is lobular in contour and has heterogeneous myometrial echogenicity. There are for fibroid tumors visible: A left fundal intramural fibroid measures 2.7 x 2.7 x 2.8 cm, previously 2.8 x 2.4 x 2.6 cm. A left mid uterine segment intramural fibroid measures 1.8 x 1.4 x 2.0 cm, previously 1.8 x 1.2 x 1.9 cm. A midline heavily calcified subserosal fundal fibroid measures 1.8 x 1.5 x 1.4 cm, previously 1.8 x 1.7 x 1.2 cm. A small intramural mid uterine segment ventral thyroid measures 0.4 x 0.5 to 0.5 cm, previously the same. Adnexa: The right ovary is visualized. The left ovary could not be well seen. There is normal color flow to the right adnexa. There is no ovarian torsion. There is no pelvic ascites or fluid collection. There are no adnexal masses. Right ovary measures 1.9 x 1.1 x 1.3 cm. Volume = 1.3 mL. Normal sonographic appearance. Left ovary is not well seen. US/US pelvic and transvaginal IMPRESSION: 1. Fibroid uterus, essentially stable as described. 2. Normal endometrium at 4 mm. 3. Left ovary is not well visualized. Normal right ovary. Electronically signed by: Everett Leyva MD 04/23/2025 03:09 PM EST
== END 2025-04-23 13:51 | disposition home or self-care (01) ==
LOC: HO.US 13:50
PROVIDERS: PCP Internal Medicine; Visit Provider Advanced Practice Midwife
DX: D21.9 Benign neoplasm of connective and other soft tissue, unspecified (principal)
CPT/HCPCS: 76830; 76856

== ENCOUNTER → 2025-04-23 13:52 | Outpatient (BNV) | payer MEDICARE, SELFPAY | PROVIDERS: PCP Internal Medicine; Visit Provider Radiology Diagnostic Radiology | DX: D25.9 Leiomyoma of uterus, unspecified (principal) | CPT/HCPCS: 76830; 76856 ==